=== PATIENT | female | born 1945 | race Caucasian/White ===

== ENCOUNTER 2022-06-18 02:32 | Emergency (ER) | payer MEDICARE, MEDICAID, SELFPAY ==
[2022-06-18] VITALS (10 sets, daily range): BP systolic 112–144; BP diastolic 52–79; PULSE 84–92; RESP 14–19; TEMP 36.6–36.7; O2SAT 94–99; BMI 31.4; BMI 29.5
--- NOTE | 2022-06-18 02:36 | XR_ITS ---
PROCEDURE INFORMATION: Exam: XR Chest Exam date and time: 06/18/2022 3:00 AM Age: 77 years old Clinical indication: Other: Somnolence TECHNIQUE: Imaging protocol: Radiologic exam of the chest. Views: 1 view. COMPARISON: No relevant prior studies available. FINDINGS: Lungs: Unremarkable. No consolidation. Pleural spaces: Unremarkable. No pleural effusion. No pneumothorax. Heart/Mediastinum: Unremarkable. No cardiomegaly. Bones/joints: Unremarkable. IMPRESSION: No acute cardiopulmonary process.
--- NOTE | 2022-06-18 02:36 | ECG_ITS ---
APPROVED REPORT Exam: Resting ECG HR:85 bpm ECG Measurements Heart Rate 85 AXES OH 157 P 71 QRSd 95 QRS 54 QT 368 T 74 QTc 410 Conclusion SINUS RHYTHM NORMAL ECG UNCONFIRMED REPORT Electronically signed by : John Nugent MD 06/19/2022 20:23:22
--- NOTE | 2022-06-18 02:37 | CT_ITS ---
PROCEDURE INFORMATION: Exam: CT Head Without Contrast Exam date and time: 06/18/2022 2:52 AM Age: 77 years old Clinical indication: Altered mental status/memory loss; Additional info: Somnolence TECHNIQUE: Imaging protocol: Computed tomography of the head without contrast. Radiation optimization: All CT scans at this facility use at least one of these dose optimization techniques: automated exposure control; mA and/or kV adjustment per patient size (includes targeted exams where dose is matched to clinical indication); or iterative reconstruction. REPORTING DATA: Count of CT and Cardiac NM exams in prior 12 months: This patient has received 0 known CTs and 0 known cardiac nuclear medicine studies in the 12 months prior to the current study. COMPARISON: No relevant prior studies available. FINDINGS: Brain: There is diffuse cortical volume loss and hypoattenuation of the deep white matter. No evidence of acute intracranial hemorrhage. No acute cerebral edema, mass effect or shift. Cerebral ventricles: No ventriculomegaly. Paranasal sinuses: Visualized sinuses are unremarkable. No fluid levels. Mastoid air cells: Visualized mastoid air cells are well aerated. Bones/joints: Unremarkable. No acute fracture. Soft tissues: Unremarkable. IMPRESSION: No acute intracranial process. Diffuse cortical atrophy and chronic deep white matter small vessel disease.
[2022-06-18 02:43] LABS: Coronavirus 19, PCR Not Detected (NotDetected); Influenza A, PCR Not Detected (NotDetected); Influenza B, PCR Not Detected (NotDetected); Microscopic, Urine URINE MICROSCOPIC (MICROSCOPIC)
[2022-06-18 02:45] LABS: Basophils # 0.1 K/mm3 (0-0.2); Basophils % 0.4 % (0.1-2.0); Eosinophils # 0.2 K/mm3 (0.0-0.4); Eosinophils % 1.4 % (0.1-12.0); Hematocrit 29.2 % (37.0-47.0); Hemoglobin 9.3 g/dL (12.2-16.2); Lymphocytes # 1.4 K/mm3 (0.7-4.5); Lymphocytes % 12.5 % (10-50); Mean Corpuscular HGB Conc 31.7 g/dL (31.8-35.4); Mean Corpuscular Hemoglobin 25.3 pg (27.0-31.2); Mean Corpuscular Volume 79.8 fl (81-99); Mean Platelet Volume 8.2 fl (7.4-10.4); Monocytes # 0.8 K/mm3 (0.1-1.0); Monocytes % 6.9 % (1.7-9.3); Neutrophils # 9.1 K/mm3 (1.8-7.8); Neutrophils % 78.8 % (37.0-80.0); Platelet Count 361 K/mm3 (142-424); Red Blood Count 3.66 M/mm3 (4.20-5.40); Red Cell Distribution Width 18.4 % (11.5-17.5); White Blood Count 11.5 K/mm3 (4.8-10.8)
[2022-06-18 02:46] LABS: Appearance,Urine CLEAR (Clear); Bilirubin,Urine Negative (Negative); Blood, Urine 2+ (Negative); Color,Urine YELLOW (Yellow); Glucose,Urine (UA) Negative (Negative); Ketones,Urine Negative (Negative); Leukocyte Esterase,Urine Negative (Negative); Nitrate,Urine Negative (Negative); Protein,Urine 1+ (Negative); Urobilinogen,Urine 0.2 EU/dl (0.2)
[2022-06-18 02:47] LABS: Sodium 135 mmol/L (136-145)
[2022-06-18 02:50] LABS: Alanine Aminotransferase 13 U/L (12-78); Albumin Level 3.1 g/dl (3.5-5.0); Albumin/Globulin Ratio 0.9 (1.1-1.8); Alkaline Phosphatase 70 U/L (38-126); Aspartate Amino Transferase 23 U/L (14-36); Bilirubin,Total 0.3 mg/dl (0.2-1.3); Blood Urea Nitrogen 43 mg/dl (7-17); Calcium 8.5 mg/dl (8.4-10.2); Carbon Dioxide 34 mmol/L (22.0-30.0); Creatinine Clearance Estimated 48 mL/min (50-200); Estimated Glomerular Filt Rate 40 ml/min (>60); GFR (African American) 48 ML/MIN (>60); Globulin 3.4 g/dL (1.3-3.2); Glucose 148 mg/dl (74-100); Total Protein,Serum 6.5 g/dl (6.3-8.2)
[2022-06-18 02:57] LABS: C-Reactive Protein 226.7 mg/L (0-4)
[2022-06-18 03:02] LABS: Chloride 96 mmol/L (98-107)
[2022-06-18 03:03] LABS: Bacteria,Urine 1+ /lpf
[2022-06-18 03:13] LABS: Erythrocyte Sedimentation Rate > 140 mm/hr (0-30)
[2022-06-18 03:26] LABS: Procalcitonin 0.311 ng/mL (0.0-2.0)
--- NOTE | 2022-06-18 03:39 | HMH.EDAMS ---
Discharge Plan Disposition Patient Disposition: Xfer SNF Prescriptions Prescriptions: No Action atorvastatin 40 mg Tablet 40 mg PO DAILY sennosides [senna] 8.6 mg Tablet 8.6 mg PO DAILY insulin glargine 100 unit/mL Solution 7 unit SQ HS loperamide 2 mg Tablet 2 mg PO DAILY PRN (Reason: Constipation) acetaminophen 500 mg Tablet 500 mg PO Q4-6H MDD 4000mg PRN (Reason: Pain, Mild) Lactobacillus acidophilus Tablet 1 tab PO DAILY baclofen 10 mg Tablet 10 mg PO QID aspirin 81 mg Tablet,Chewable 81 mg PO DAILY insulin lispro [Humalog U-100 Insulin] 100 unit/mL Solution See Protocol SQ ACHS Protocol: Insulin Corrective Low-Dose Regimen Condition: Fingerstick Blood Glucose Dose/Route: Insulin Units Condition: 151-200 mg/dl Dose/Route: 2 unit/SQ Condition: 201-250 mg/dl Dose/Route: 4 units/SQ Condition: 251-300 mg/dl Dose/Route: 6 units/SQ Condition: 301-350 mg/dl Dose/Route: 8 units/SQ Condition: 351-400 mg/dl Dose/Route: 10 units/SQ Condition: 401-450 mg/dl Dose/Route: 12 units/SQ Condition: > 450 mg/dl Dose/Route: CALL MD Protocol Text: Low Intensity Sliding Scale Insulin ferrous sulfate 325 mg (65 mg iron) Tablet,Delayed Release (Dr/Ec) 325 mg PO DAILY diazepam 5 mg Tablet 5 mg PO HS Multivitamin And Mineral Tablet 1 tab PO DAILY melatonin 5 mg Tablet 5 mg PO HS Zinc Oxide Diaper Cream 1-10 % Cream 1 applic TOPICAL QID Clinical Impressions Clinical Impression: Altered mental status, Status post CVA, Elevated erythrocyte sedimentation rate, Elevated C-reactive protein (CRP), CRI (chronic renal insufficiency) Instructions Patient Instructions: DI for Altered Mental Status Discharge ED Provider: Korina (ED)Jacinto Altered Mental Status HPI General Chief Complaint: Altered Mental Status Stated Complaint: AMS Time Seen by Provider: 06/18/22 03:39 Mode of Arrival: EMS Source of Information: EMS Limitations: Altered Mental Status Description of Symptoms (Recalled from ER Triage Doc. by RN): Per EMS, patient has been somnolent throughout the day. correction staff reports that she is normally alert and talkative but has been very drowsy. correction staff did give patient her night time diazepam, melatonin and muscle relaxer at 1999. Upon arrival states that the care home called him at 1700 and said that she was very sleepy so they were going to have a doctor look at her. States they called him back at 0100 and said they were sending her in for evaluation because she was still very sleepy. History of Present Illness HPI narrative: sent from [facility] with reported dec mental status - no fever - no vomiting or trauma MD complaint: altered mental status Onset (ago): hour(s) Timing confirmed by: spouse and caregiver Severity: moderate Consistency of symptoms: waxing and waning Associated symptoms: denies other symptoms Related Data Home Medications Medication Instructions Recorded Confirmed Lactobacillus acidophilus 1 tab PO DAILY gerd 06/18/22 06/18/22 acetaminophen 500 mg tablet 500 mg PO Q4-6H PRN Pain, Mild 06/18/22 06/18/22 aspirin 81 mg chewable tablet 81 mg PO DAILY heart health 06/18/22 06/18/22 atorvastatin 40 mg tablet 40 mg PO DAILY High cholesterol 06/18/22 06/18/22 baclofen 10 mg tablet 10 mg PO QID muscle spasm 06/18/22 06/18/22 diazepam 5 mg tablet 5 mg PO HS Insomnia 06/18/22 06/18/22 dimethicone 1 %-zinc oxide 10 1 applic topical QID rash 06/18/22 06/18/22 %-vit A and D-aloe vera topical cream (Zinc Oxide Diaper Cream) ferrous sulfate 325 mg (65 mg 325 mg PO DAILY Supplement 06/18/22 06/18/22 iron) tablet,delayed release insulin glargine 100 unit/mL 7 unit SQ HS Diabetes 06/18/22 06/18/22 subcutaneous solution insulin lispro 100 unit/mL See Protocol SQ ACHS Diabetes 06/18/22 06/18/22 subcutaneous solution (Humalog U-100 Insulin) shahram
== END 2022-06-18 07:05 ==
PROVIDERS: Emergency Provider Emergency Medicine; PCP Family Medicine
DX: R41.82 Altered mental status, unspecified (principal); R40.0 Somnolence
CPT/HCPCS: 51702; 70450; 71045; 80053; 81001; 84145; 85025; 85651; 86140; 87086; 87088; 87186; 93005; 99285; C9803; U0003; U0005

== ENCOUNTER 2022-06-22 06:27 | Inpatient (IN) | payer MEDICARE, MEDICAID, SELFPAY ==
[2022-06-22] VITALS (22 sets, daily range): BP systolic 73–137; BP diastolic 38–67; PULSE 80–166; RESP 18–26; TEMP 37.7–40.4; O2SAT 90–100; BMI 29.0; BMI 23.7
--- NOTE | 2022-06-22 06:37 | ECG_ITS ---
APPROVED REPORT Exam: Resting ECG HR:139 bpm ECG Measurements Heart Rate 139 AXES VT 132 P 75 QRSd 83 QRS 72 QT 329 T 43 QTc 410 Conclusion SINUS TACHYCARDIA NONSPECIFIC ST & T-WAVE ABNORMALITY ABNORMAL RHYTHM ECG UNCONFIRMED REPORT Electronically signed by : John Nugent MD 06/23/2022 09:33:51
--- NOTE | 2022-06-22 06:58 | HMH.EDFEV ---
Discharge Plan Disposition Patient Disposition: Admitted As Inpatient Prescriptions Prescriptions: No Action atorvastatin 40 mg Tablet 40 mg PO DAILY sennosides [senna] 8.6 mg Tablet 8.6 mg PO DAILY insulin glargine 100 unit/mL Solution 7 unit SQ HS loperamide 2 mg Tablet 2 mg PO DAILY PRN (Reason: Constipation) acetaminophen 500 mg Tablet 500 mg PO Q4-6H MDD 4000mg PRN (Reason: Pain, Mild) Lactobacillus acidophilus Tablet 1 tab PO DAILY baclofen 10 mg Tablet 10 mg PO QID aspirin 81 mg Tablet,Chewable 81 mg PO DAILY insulin lispro [Humalog U-100 Insulin] 100 unit/mL Solution See Protocol SQ ACHS Protocol: Insulin Corrective Low-Dose Regimen Condition: Fingerstick Blood Glucose Dose/Route: Insulin Units Condition: 151-200 mg/dl Dose/Route: 2 unit/SQ Condition: 201-250 mg/dl Dose/Route: 4 units/SQ Condition: 251-300 mg/dl Dose/Route: 6 units/SQ Condition: 301-350 mg/dl Dose/Route: 8 units/SQ Condition: 351-400 mg/dl Dose/Route: 10 units/SQ Condition: 401-450 mg/dl Dose/Route: 12 units/SQ Condition: > 450 mg/dl Dose/Route: CALL MD Protocol Text: Low Intensity Sliding Scale Insulin ferrous sulfate 325 mg (65 mg iron) Tablet,Delayed Release (Dr/Ec) 325 mg PO DAILY diazepam 5 mg Tablet 5 mg PO HS Multivitamin And Mineral Tablet 1 tab PO DAILY melatonin 5 mg Tablet 5 mg PO HS Zinc Oxide Diaper Cream 1-10 % Cream 1 applic TOPICAL QID sulfamethoxazole-trimethoprim 400-80 mg tablet 1 tab PO BID Referrals Follow up/Referrals: Jacinto Greenfield [Primary Care Provider] - See instructions Clinical Impressions Clinical Impression: Acute UTI (urinary tract infection), CRI (chronic renal insufficiency), Atrial fibrillation, Severe sepsis with acute organ dysfunction, Diabetes mellitus, Acute delirium, Elevated troponin Discharge ED Provider: Korina (JACK)Jacinto Fever HPI General Chief Complaint: Fever Stated Complaint: elevated heart rate, fever Time Seen by Provider: 06/22/22 06:30 Mode of Arrival: EMS Source of Information: Patient, EMS and Medical Record Limitations: Altered Mental Status Description of Symptoms (Recalled from ER Triage Doc. by RN): Per [facility], patient began treatment for a uti yesterday. Pt had a fever last night before bed and was given tylenol at 2030. [facility] stated that the patients fever improved over night but when she woke up this morning her axillary temperature was 101 and her heart rate was 140. [facility] staff called her pcp and pcp told them to send her for evaluation for a.fib. Pt has no history of a.fib. Patients rectal temperatur on arrival to er was 104.8. History of Present Illness HPI Narrative: pt sent from [facility] with altered mental status and fever - reported uti at [facility] and started on abx - started on - pt w/o specific c/o- has recent positive uti - e coli complaint: fever Onset (ago): hour(s) Associated symptoms: denies other symptoms Relieving factors: acetaminophen Related Data Home Medications Medication Instructions Recorded Confirmed Lactobacillus acidophilus 1 tab PO DAILY gerd 06/18/22 06/22/22 acetaminophen 500 mg tablet 500 mg PO Q4-6H PRN Pain, Mild 06/18/22 06/22/22 aspirin 81 mg chewable tablet 81 mg PO DAILY heart health 06/18/22 06/22/22 atorvastatin 40 mg tablet 40 mg PO DAILY High cholesterol 06/18/22 06/22/22 baclofen 10 mg tablet 10 mg PO QID muscle spasm 06/18/22 06/22/22 diazepam 5 mg tablet 5 mg PO HS Insomnia 06/18/22 06/22/22 dimethicone 1 %-zinc oxide 10 1 applic topical QID rash 06/18/22 06/22/22 %-vit A and D-aloe vera topical cream (Zinc Oxide Diaper Cream) ferrous sulfate 325 mg (65 mg 325 mg PO DAILY Supplement 06/18/22 06/22/22 iron) tablet,delayed release insulin glargine 100 unit/mL 7 unit SQ HS Diabetes 06/18/22 06/22/22 subcutaneous solution insulin lispro 100 unit/mL
[2022-06-22 06:59] LABS: Appearance,Urine CLOUDY (Clear); Bilirubin,Urine Negative (Negative); Blood, Urine 3+ (Negative); Color,Urine YELLOW (Yellow); Glucose,Urine (UA) Negative (Negative); Ketones,Urine TRACE (Negative); Leukocyte Esterase,Urine 2+ (Negative); Microscopic, Urine URINE MICROSCOPIC (MICROSCOPIC); Nitrate,Urine POSITIVE (Negative); PH,Urine 8.5 (5.0-8.5); Protein,Urine 2+ (Negative); Specific Gravity, Urine 1.015 (1.005-1.030); Urobilinogen,Urine 0.2 EU/dl (0.2)
--- NOTE | 2022-06-22 06:59 | XR_ITS ---
FINAL REPORT CLINICAL HISTORY: fever, poss a fib. COMPARISON: 06/18/2022 FINDINGS: A single portable view of the chest was obtained. The heart size and pulmonary vascularity are within normal limits. The mediastinum is within normal limits. No acute pulmonary abnormality is identified. The bony thorax is intact. IMPRESSION: No active cardiopulmonary disease. Reviewed, Interpreted and Dictated by Juan Daniel Bansal III, MD Transcribed by Ilas Orantes Authenticated and [facility]
[2022-06-22 07:05] LABS: Basophils % 0.2 % (0.1-2.0); Eosinophils # 0.1 K/mm3 (0.0-0.4); Eosinophils % 0.8 % (0.1-12.0); Hemoglobin 9.8 g/dL (12.2-16.2); Lymphocytes # 0.4 K/mm3 (0.7-4.5); Lymphocytes % 2.5 % (10-50); Mean Corpuscular HGB Conc 31.6 g/dL (31.8-35.4); Mean Corpuscular Hemoglobin 24.4 pg (27.0-31.2); Mean Corpuscular Volume 77.2 fl (81-99); Mean Platelet Volume 7.9 fl (7.4-10.4); Monocytes # 0.2 K/mm3 (0.1-1.0); Monocytes % 1.3 % (1.7-9.3); Neutrophils # 16.7 K/mm3 (1.8-7.8); Neutrophils % 95.2 % (37.0-80.0); Platelet Count 482 K/mm3 (142-424); Red Blood Count 4.02 M/mm3 (4.20-5.40); Red Cell Distribution Width 17.9 % (11.5-17.5); White Blood Count 17.5 K/mm3 (4.8-10.8)
[2022-06-22 07:06] LABS: Chloride 96 mmol/L (98-107); Potassium 4.1 mmoL/L (3.5-5.1); Sodium 134 mmol/L (136-145)
[2022-06-22 07:07] LABS: MANUAL DIFFERENTIAL MANUAL DIFFERENTIAL (MANUAL DIFF)
[2022-06-22 07:08] LABS: Blood Urea Nitrogen 43 mg/dl (7-17); Creatinine Clearance Estimated 39 mL/min (50-200); Estimated Glomerular Filt Rate 31 ml/min (>60); GFR (African American) 38 ML/MIN (>60)
[2022-06-22 07:09] LABS: Alanine Aminotransferase 17 U/L (12-78); Albumin Level 3.2 g/dl (3.5-5.0); Albumin/Globulin Ratio 0.9 (1.1-1.8); Alkaline Phosphatase 165 U/L (38-126); Anion Gap 15.1 mEq/L (5-15); Aspartate Amino Transferase 27 U/L (14-36); Bilirubin,Total 0.5 mg/dl (0.2-1.3); Carbon Dioxide 27 mmol/L (22.0-30.0); Globulin 3.7 g/dL (1.3-3.2); Total Protein,Serum 6.9 g/dl (6.3-8.2)
[2022-06-22 07:10] LABS: Calcium 8.4 mg/dl (8.4-10.2); Glucose 178 mg/dl (74-100)
[2022-06-22 07:10] LABS: Bacteria,Urine 2+ /lpf; RBC,Urine 20-50 #/hpf (0-3)
--- NOTE | 2022-06-22 07:10 | PC.NURSE ---
plant operator/shift supervisor staff confirmed they gave 650mg tylenol RC
[2022-06-22 07:11] LABS: Coronavirus 19, PCR Not Detected (NotDetected); Influenza A, PCR Not Detected (NotDetected); Influenza B, PCR Not Detected (NotDetected)
[2022-06-22 07:13] LABS: Acetone, Serum (Rapid) None Detected (None Detect)
[2022-06-22 07:14] LABS: C-Reactive Protein 253.1 mg/L (0-4)
[2022-06-22 07:22] LABS: Lactic Acid 2.1 mmol/L (0.7-2.1)
[2022-06-22 07:25] LABS: Lymphocytes % 4 % (10-50); Monocytes % 1 % (2-9); Neutrophils % 95 % (42-76); Total Cells Counted 100
--- NOTE | 2022-06-22 07:25 | ECG_ITS ---
APPROVED REPORT Exam: Resting ECG HR:181 bpm ECG Measurements Heart Rate 181 AXES QRSd 88 QRS 78 QT 200 T 0 QTc 295 Conclusion ATRIAL FIBRILLATION WITH RAPID VENTRICULAR RESPONSE WITH ABERRANT CONDUCTION OR VENTRICULAR PREMATURE COMPLEXES NONSPECIFIC ST & T-WAVE ABNORMALITY CRITICAL TEST RESULT UNCONFIRMED REPORT Electronically signed by : John Nugent MD 06/23/2022 09:33:47
--- NOTE | 2022-06-22 07:25 | PC.NURSE ---
2nd EKG done and given to Dr. Hui d/t elevated heart rate, rhythm change
[2022-06-22 07:26] LABS: Hypochromasia 1+; Microcytosis 1+; Platelet Estimate Slight Increase
--- NOTE | 2022-06-22 07:28 | PC.NURSE ---
while at the nurses station the pt was noted to have a heart rate of 180s and O2 sat of 88% on the monitor. this nurse and BAILEY Starks went to bedside to assess pt. pt was coughing and restless and reporting that everything hurt. pt attempted to be redirected and calmed down to lower pulse rate but unsuccessful. pt remained in the 180s bpm. new EKG obtained at this time and given to . pt is new onset Afib on EKG. Cardizem push and drip ordered at this time.
--- NOTE | 2022-06-22 07:29 | PC.NURSE ---
pt placed on oxygen at 2L NC at this time due to oxygen sat of 88% and tachycardia.
--- NOTE | 2022-06-22 07:29 | PC.NURSE ---
House notified of admission, UTI, severe sepsis, acute organ dysfunction. Hospitalist, Dr. Avila.
[2022-06-22 07:32] LABS: Procalcitonin 22.8 ng/mL (0.0-2.0); Troponin I 0.88 ng/ml (0.00-0.034)
--- NOTE | 2022-06-22 07:32 | PC.NURSE ---
care management notified pt status changed to step down.
--- NOTE | 2022-06-22 07:32 | PC.NURSE ---
Michelle Woodward RN gave Dr. Hui trop results verbally of 0.88
[2022-06-22 07:39] LABS: Erythrocyte Sedimentation Rate > 140 mm/hr (0-30)
--- NOTE | 2022-06-22 07:45 | PC.NURSE ---
calling care management to update on needing a step down room
[2022-06-22 07:59] LABS: NT Pro Brain Natriuretic Pep. 1720 pg/mL (0-450)
[2022-06-22 08:07] LABS: T4 (Thyroxine) 6.7 ug/dl (5.53-11.0)
[2022-06-22 08:21] LABS: Thyroid Stimulating Hormone 2.54 uIU/mL (0.465-4.68)
--- NOTE | 2022-06-22 08:34 | PC.NURSE ---
report called to Kathy Jaime RN
--- NOTE | 2022-06-22 08:55 | PC.NURSE ---
notified pt converted to NSR at this time. stated to not stop the Cardizem at this time and that he would be down to round on the pt soon.
--- NOTE | 2022-06-22 09:07 | PC.NURSE ---
Dr. Avila, Hospitalist at
--- NOTE | 2022-06-22 09:10 | PC.NURSE ---
Dr. Nolberto Avila at bedside for pt evaluation at this time. MD confirmed conversion to NSR and performed bedside echo at this time via US. MD gave verbal order to keep pt on cardizem and to give another 1000ml bolus of NS after the current bolus is finished. MD also notified of pt current pain due to chronic muscle spasms and notified pt family that once her BP came up after fluids they could look at giving her something for pain. pt was understanding and had no other complaints or concerns at this time
--- NOTE | 2022-06-22 09:20 | PC.NURSE ---
Pt arrived to the floor at this time
--- NOTE | 2022-06-22 10:07 | EXP.HP ---
History of Present Illness *Reason for visit:: Encephalopathy *History of present illness: 77-year-old female presenting emergency department due to acute encephalopathy. Found to have urinary tract infection, she is currently unable to provide any history due to underlying acute illness. She is continuously moaning due to back spasms. Unable to provide further history due to encephalopathy Arrived in atrial fibrillation with RVR. Bedside echo showed normal ejection fraction. Patient was started on Cardizem and had improvement of her atrial fibrillation and converted back to normal sinus rhythm. She remained tachycardic and was receiving multiple boluses of IV fluids. She continued to be hypotensive and was started on Levophed. Despite fluid and pressor resuscitation patient remained tenuous from a hemodynamic standpoint. Broad-spectrum antibiotics were initiated. Triple-lumen IJ central catheter was placed. [facility] Disclaimer: The information contained in this section may have been updated after the patient was seen, as this information can be updated by other users. Medical History (Updated 06/22/22 @ 14:18 by Jaguar Gayle MD) Acute delirium Altered mental status Atrial fibrillation CRI (chronic renal insufficiency) Diabetes mellitus Elevated troponin Hyperlipidemia Septic shock Status post CVA Surgical History (Updated 06/22/22 @ 16:14 by Kathy Jaime RN) H/O: hysterectomy Family History (Updated 06/22/22 @ 16:14 by Kathy Jaime, BAILEY) Other Family history of hyperlipidemia Family history of hypertension Social History (Updated 06/22/22 @ 16:16 by Kathy Jaime RN) Smoking Status: Never smoker alcohol intake: never current occupational status: retired Travel in the last 8 weeks: None Review of Systems Review of Systems Review of systems:: unable to obtain Meds Home Medications and Allergies Home Medications Medication Instructions Recorded Confirmed Type Lactobacillus acidophilus 1 tab PO DAILY Probiotic 06/18/22 06/22/22 History acetaminophen 500 mg tablet 500 mg PO Q6HP PRN Pain or Fever, 06/18/22 06/22/22 History Mild aspirin 81 mg chewable tablet 81 mg PO DAILY heart health 06/18/22 06/22/22 History baclofen 10 mg tablet 10 mg PO QID muscle spasm 06/18/22 06/22/22 History diazepam 5 mg tablet 5 mg PO HS Insomnia 06/18/22 06/22/22 History dimethicone 1 %-zinc oxide 10 1 applic topical QID rash 06/18/22 06/22/22 History %-vit A and D-aloe vera topical cream (Zinc Oxide Diaper Cream) ferrous sulfate 325 mg (65 mg 325 mg PO Q48H Supplement 06/18/22 06/22/22 History iron) tablet,delayed release insulin glargine 100 unit/mL 7 unit SQ HS Diabetes 06/18/22 06/22/22 History subcutaneous solution insulin lispro 100 unit/mL See Protocol SQ ACHS Diabetes 06/18/22 06/22/22 History subcutaneous solution (Humalog U-100 Insulin) loperamide 2 mg tablet 2 mg PO Q6HP PRN Loose Stools 06/18/22 06/22/22 History melatonin 5 mg tablet 15 mg PO HS Insomnia 06/18/22 06/22/22 History multivitamin,mr-wemw-Bx-FA-min 1 tab PO DAILY Supplement 06/18/22 06/22/22 History sennosides 8.6 mg tablet (senna) 8.6 mg PO Q48H constipation 06/18/22 06/22/22 History pravastatin 40 mg tablet 40 mg PO HS Cholesterol 06/22/22 06/22/22 History sulfamethoxazole 400 1 tab PO BID Urinary tract 06/22/22 06/22/22 History mg-trimethoprim 80 mg tablet infection New Prescriptions to Start Prescriptions: Allergies Allergy/AdvReac Type Severity Reaction Status Date / Time atorvastatin [From Lipitor] Allergy Unknown Unknown Verified 06/18/22 02:36 allergy reaction simvastatin [From Zocor] Allergy Unknown Unknown Verified 06/18/22 02:36 allergy reaction Exam Data for Last 24 hours Vital signs and Labs for Last 24 Hours: Temp Pulse Resp BP Pulse Ox 104.8 F H 131 H 23 97/48 L 93 L 06/22/22 06:48 06/22/22 08:21 06/22/22 08:21 06/22/22 08:21
--- NOTE | 2022-06-22 10:14 | HMH.PHAINT1 ---
Pharmacy Intervention Comments: Reconciled patient's home medications using MAR from [facility].
[2022-06-22 10:56] LABS: Reflex Lactic Add Lactic Reflex
[2022-06-22 11:27] LABS: Troponin I 1.14 ng/ml (0.00-0.034)
--- NOTE | 2022-06-22 11:34 | PC.NURSE ---
Critical lab value troponin 1.14 reported to
--- NOTE | 2022-06-22 11:34 | PC.NURSE ---
Pt continues to be hypotensive. notified. New orders received to place pt on Levophed.
[2022-06-22 11:43] LABS: Lactic Acid Follow Up (RFLX 1) 1.4 mmol/L (0.7-2.1)
--- NOTE | 2022-06-22 12:08 | EXP.PHA.CONS ---
Pharmacy Consult Date: 06/22/22 Time: 12:08 Referring provider: DR. Zeke SANTOYO Reason for Consult:: VANCOMYCIN DOSING Allergies Allergy/AdvReac Type Severity Reaction Status Date / Time atorvastatin [From Lipitor] Allergy Unknown Unknown Verified 06/18/22 02:36 allergy reaction simvastatin [From Zocor] Allergy Unknown Unknown Verified 06/18/22 02:36 allergy reaction Home Medications Medication Instructions Recorded Confirmed Type Lactobacillus acidophilus 1 tab PO DAILY Probiotic 06/18/22 06/22/22 History acetaminophen 500 mg tablet 500 mg PO Q6HP PRN Pain or Fever, 06/18/22 06/22/22 History Mild aspirin 81 mg chewable tablet 81 mg PO DAILY heart health 06/18/22 06/22/22 History baclofen 10 mg tablet 10 mg PO QID muscle spasm 06/18/22 06/22/22 History diazepam 5 mg tablet 5 mg PO HS Insomnia 06/18/22 06/22/22 History dimethicone 1 %-zinc oxide 10 1 applic topical QID rash 06/18/22 06/22/22 History %-vit A and D-aloe vera topical cream (Zinc Oxide Diaper Cream) ferrous sulfate 325 mg (65 mg 325 mg PO Q48H Supplement 06/18/22 06/22/22 History iron) tablet,delayed release insulin glargine 100 unit/mL 7 unit SQ HS Diabetes 06/18/22 06/22/22 History subcutaneous solution insulin lispro 100 unit/mL See Protocol SQ ACHS Diabetes 06/18/22 06/22/22 History subcutaneous solution (Humalog U-100 Insulin) loperamide 2 mg tablet 2 mg PO Q6HP PRN Loose Stools 06/18/22 06/22/22 History melatonin 5 mg tablet 15 mg PO HS Insomnia 06/18/22 06/22/22 History multivitamin,mq-hjla-La-FA-min 1 tab PO DAILY Supplement 06/18/22 06/22/22 History sennosides 8.6 mg tablet (senna) 8.6 mg PO Q48H constipation 06/18/22 06/22/22 History pravastatin 40 mg tablet 40 mg PO HS Cholesterol 06/22/22 06/22/22 History sulfamethoxazole 400 1 tab PO BID Urinary tract 06/22/22 06/22/22 History mg-trimethoprim 80 mg tablet infection New Prescriptions to Start Prescriptions: Height: 1.63 m Weight: 62.686 kg Laboratory Results:: Laboratory Results - last 24 hr 06/22/22 06:39: WBC 17.5 H, RBC 4.02 L, Hgb 9.8 L, Hct 31.0 L, MCV 77.2 L, MCH 24.4 L, MCHC 31.6 L, RDW 17.9 H, Plt Count 482 H, MPV 7.9, Neut % (Auto) 95.2 H, Lymph % (Auto) 2.5 L, Norman % (Auto) 1.3 L, Eos % (Auto) 0.8, Baso % (Auto) 0.2, Neut # (Auto) 16.7 H, Lymph # (Auto) 0.4 L, Norman # (Auto) 0.2, Eos # (Auto) 0.1, Baso # (Auto) 0.0, Total Counted 100, Neutrophils % (Manual) 95 H, Lymphocytes % (Manual) 4 L, Monocytes % (Manual) 1 L, Platelet Estimate Slight increase, RBC Morphology Not Reportable, Hypochromasia 1+, Microcytosis 1+, ESR > 140 H 06/22/22 06:39: Sodium 134 L, Potassium 4.1, Chloride 96 L, Carbon Dioxide 27, Anion Gap 15.1 H, BUN 43 H, Creatinine 1.60 H, Estimated Creat Clear 39, Estimated GFR 31 L, Est GFR ( Amer) 38 L, Glucose 178 H, Calcium 8.4, Total Bilirubin 0.5, AST 27, ALT 17, Alkaline Phosphatase 165 H, C-Reactive Protein 253.1 H, Total Protein 6.9, Albumin 3.2 L, Globulin 3.7 H, Albumin/Globulin Ratio 0.9 L 06/22/22 06:39: Lactate 2.1 06/22/22 06:39: Acetone Level None detected 06/22/22 06:39: Troponin I 0.88 H, Procalcitonin 22.8 H 06/22/22 06:39: NT-Pro-B Natriuret Pep 1720 H, TSH 2.54, Thyroxine (T4) 6.7 06/22/22 06:40: SARS-CoV-2 (PCR) Not detected, Influenza A Untype (PCR) Not detected, Influenza Type B (PCR) Not detected 06/22/22 06:45: Urine Color Yellow, Urine Appearance Cloudy, Urine pH 8.5, Ur Specific [place] 1.015, Urine Protein 2+, Urine Glucose (UA) Negative, Urine Ketones Trace, Urine Blood 3+, Urine Nitrate Positive, Urine Bilirubin Negative, Urine Urobilinogen 0.2, Ur Leukocyte Esterase 2+ A, Urine RBC 20-50, Urine WBC 10-20, Ur Squamous Epith Cells 3-5, Urine Bacteria 2+ 06/22/22 10:37: Troponin I 1.14 H 06/22/22 11:19: Lactate 1.4 Assessment and Plan Assessment and plan all Dx Assessment and Plan for all problems:: Pharmacokinetic dosing service Objective: Patient
--- NOTE | 2022-06-22 13:02 | EXP.CARD.CON ---
History of Present Illness History of Present Illness Consult date: 06/22/22 Requesting physician: Vani Avila Consult reason: atrial fibrillation Chief complaint: afib History of present illness: This is a 77-year-old white female with a past known history of cerebrovascular accident, hyperlipidemia and diabetes mellitus. The patient presented to the emergency department with acute encephalopathy. The patient resides at [facility] and began treatment for UTI yesterday. Through the night the patient had fevers which did improve overnight but when she woke up this morning her axillary temperature was 101 ?F. The patient was noted to have a heart rate in the 140s. The halfway called her primary care provider who then recommended that the patient be sent to the emergency department for evaluation secondary to her tachycardia. On arrival to the emergency department her rectal temperature was 104.8 ?F. The patient does have an altered mental status. She was found to have a UTI and sepsis and admitted to the hospital. The patient was also in atrial fibrillation with RVR. Her heart rate was in the 180s since being in the hospital. The patient was started on a diltiazem drip. She has converted to sinus rhythm with the diltiazem drip. She remains somewhat tachycardic in sinus with a heart rate of around 110 bpm at this time. The patient appears to be in no acute distress. However, she is moaning and her states that she does this when she is having muscle spasms. He states that she has had these episodes of moaning like this when she is in pain from muscle spasms since her stroke several years ago. The patient really does not follow any commands or answer any of my questions during the review of systems. [facility] Disclaimer: The information contained in this section may have been updated after the patient was seen, as this information can be updated by other users. Medical History (Updated 06/22/22 @ 13:42 by Brittany Childers APRN) Acute delirium Altered mental status Atrial fibrillation CRI (chronic renal insufficiency) Diabetes mellitus Elevated troponin Hyperlipidemia Status post CVA Social History (Updated 06/18/22 @ 06:49 by Jacinto Hui MD (ED)) Smoking Status: Never smoker alcohol intake: never current occupational status: retired Travel in the last 8 weeks: None Review of Systems Review of Systems Review of systems:: unable to obtain Exam Data for Last 24 hours Vital signs and Labs for Last 24 Hours: Temp Pulse Resp BP Pulse Ox 100.4 F H 122 H 21 102/53 L 94 L 06/22/22 11:26 06/22/22 09:15 06/22/22 09:15 06/22/22 09:15 06/22/22 09:00 Laboratory Results - last 24 hr 06/22/22 06:39: WBC 17.5 H, RBC 4.02 L, Hgb 9.8 L, Hct 31.0 L, MCV 77.2 L, MCH 24.4 L, MCHC 31.6 L, RDW 17.9 H, Plt Count 482 H, MPV 7.9, Neut % (Auto) 95.2 H, Lymph % (Auto) 2.5 L, [place] % (Auto) 1.3 L, Eos % (Auto) 0.8, Baso % (Auto) 0.2, Neut # (Auto) 16.7 H, Lymph # (Auto) 0.4 L, [place] # (Auto) 0.2, Eos # (Auto) 0.1, Baso # (Auto) 0.0, Total Counted 100, Neutrophils % (Manual) 95 H, Lymphocytes % (Manual) 4 L, Monocytes % (Manual) 1 L, Platelet Estimate Slight increase, RBC Morphology Not Reportable, Hypochromasia 1+, Microcytosis 1+, ESR > 140 H 06/22/22 06:39: Sodium 134 L, Potassium 4.1, Chloride 96 L, Carbon Dioxide 27, Anion Gap 15.1 H, BUN 43 H, Creatinine 1.60 H, Estimated Creat Clear 39, Estimated GFR 31 L, Est GFR ( Amer) 38 L, Glucose 178 H, Calcium 8.4, Total Bilirubin 0.5, AST 27, ALT 17, Alkaline Phosphatase 165 H, C-Reactive Protein 253.1 H, Total Protein 6.9, Albumin 3.2 L, Globulin 3.7 H, Albumin/Globulin Ratio 0.9 L 06/22/22 06:39: Lactate 2.1 06/22/22 06:39: Acetone Level None detected 06/22/22 06:39: Troponin I 0.88 H, Procalcitonin 22.8 H 06/22/22 06:39: NT-Pro-B Natriuret Pep 1720 H, TSH 2.54, Thyroxine (T4) 6.7 06/22/22 06:40: SARS-CoV-2 (PCR) Not detected, Influenza A Untyp
[2022-06-22 13:45] LABS: Troponin I 1.03 ng/ml (0.00-0.034)
--- NOTE | 2022-06-22 14:18 | EXP.PULM.CON ---
History of Present Illness History of present illness: Ms. Chaney is a 77-year-old female prior smoker greater than [id number] smoker history, last smoked in 2009, multiple bilateral strokes with residual weakness in both left and right upper and lower extremities left greater than right was presented to the hospital worsening mentation and eventually found to be in septic shock needing vasopressor support and pulmonary was called for further evaluation [facility] Disclaimer: The information contained in this section may have been updated after the patient was seen, as this information can be updated by other users. Medical History (Updated 06/22/22 @ 14:18 by Jaguar Gayle MD) Acute delirium Altered mental status Atrial fibrillation CRI (chronic renal insufficiency) Diabetes mellitus Elevated troponin Hyperlipidemia Septic shock Status post CVA Social History (Updated 06/18/22 @ 06:49 by Jacinto Hui (ED)MD) Smoking Status: Never smoker alcohol intake: never current occupational status: retired Travel in the last 8 weeks: None Review of Systems Review of Systems Review of systems (narrative): Limited, patient altered. Constitutional Constitutional: Reports body ache(s) *Cardiovascular Cardiovascular: Reports dyspnea and Reports dyspnea on exertion *Respiratory Respiratory: Reports cough, Reports dyspnea and Reports dyspnea on exertion *Gastrointestinal Gastrointestinal: Reports abdominal pain *Musculoskeletal Musculoskeletal: Reports back pain and Reports myalgias Pulmonology Exam Inpatient Vital signs and Labs for Last 24 Hours: Temp Pulse Resp BP Pulse Ox 100.4 F H 122 H 21 102/53 L 94 L 06/22/22 11:26 06/22/22 09:15 06/22/22 09:15 06/22/22 09:15 06/22/22 09:00 Laboratory Results - last 24 hr 06/22/22 06:39: WBC 17.5 H, RBC 4.02 L, Hgb 9.8 L, Hct 31.0 L, MCV 77.2 L, MCH 24.4 L, MCHC 31.6 L, RDW 17.9 H, Plt Count 482 H, MPV 7.9, Neut % (Auto) 95.2 H, Lymph % (Auto) 2.5 L, [place] % (Auto) 1.3 L, Eos % (Auto) 0.8, Baso % (Auto) 0.2, Neut # (Auto) 16.7 H, Lymph # (Auto) 0.4 L, [place] # (Auto) 0.2, Eos # (Auto) 0.1, Baso # (Auto) 0.0, Total Counted 100, Neutrophils % (Manual) 95 H, Lymphocytes % (Manual) 4 L, Monocytes % (Manual) 1 L, Platelet Estimate Slight increase, RBC Morphology Not Reportable, Hypochromasia 1+, Microcytosis 1+, ESR > 140 H 06/22/22 06:39: Sodium 134 L, Potassium 4.1, Chloride 96 L, Carbon Dioxide 27, Anion Gap 15.1 H, BUN 43 H, Creatinine 1.60 H, Estimated Creat Clear 39, Estimated GFR 31 L, Est GFR ( Amer) 38 L, Glucose 178 H, Calcium 8.4, Total Bilirubin 0.5, AST 27, ALT 17, Alkaline Phosphatase 165 H, C-Reactive Protein 253.1 H, Total Protein 6.9, Albumin 3.2 L, Globulin 3.7 H, Albumin/Globulin Ratio 0.9 L 06/22/22 06:39: Lactate 2.1 06/22/22 06:39: Acetone Level None detected 06/22/22 06:39: Troponin I 0.88 H, Procalcitonin 22.8 H 06/22/22 06:39: NT-Pro-B Natriuret Pep 1720 H, TSH 2.54, Thyroxine (T4) 6.7 06/22/22 06:40: SARS-CoV-2 (PCR) Not detected, Influenza A Untype (PCR) Not detected, Influenza Type B (PCR) Not detected 06/22/22 06:45: Urine Color Yellow, Urine Appearance Cloudy, Urine pH 8.5, Ur Specific [place] 1.015, Urine Protein 2+, Urine Glucose (UA) Negative, Urine Ketones Trace, Urine Blood 3+, Urine Nitrate Positive, Urine Bilirubin Negative, Urine Urobilinogen 0.2, Ur Leukocyte Esterase 2+ A, Urine RBC 20-50, Urine WBC 10-20, Ur Squamous Epith Cells 3-5, Urine Bacteria 2+ 06/22/22 10:37: Troponin I 1.14 H 06/22/22 11:19: Lactate 1.4 06/22/22 13:08: Troponin I 1.03 H I & O for Labs for Last 24 Hours: Intake & Output 06/19/22 06/20/22 06/21/22 04/13/23 23:59 23:59 23:59 23:59 Intake Total 141 / 141 Output Total 0 / 0 Balance 141 / 141 Weight 138 lb 3.2 oz Constitutional: Present severe distress Head: Present normocephalic and atraumatic ENT: Present normal exam, normal oropharynx and mucous membranes moist Neck: Present normal ins
[2022-06-22 14:25] LABS: POC Glucose,Bedside 205 (70-110)
--- NOTE | 2022-06-22 15:28 | XR_ITS ---
FINAL REPORT CLINICAL HISTORY: EVALUATE CENTRAL LINE PLACEMENT. COMPARISON: 06/22/2022 FINDINGS: A single portable view of the chest was obtained. There is a new right deep line with the tip at the cavoatrial junction. The heart size and pulmonary vascularity are within normal limits. The mediastinum is within normal limits. There is mild right base opacity, favor atelectasis. No pneumothorax. The bony thorax is intact. IMPRESSION: Interval placement right deep line. Mild right base opacity, favor atelectasis. Reviewed, Interpreted and Dictated by Juan Daniel Bansal III, MD Transcribed by Ilsa Orantes Authenticated and [facility]
--- NOTE | 2022-06-22 18:46 | PC.NURSE ---
LR bolus infusing at this time. Levophed gtt placed on stand by.
--- NOTE | 2022-06-22 19:33 | PC.NURSE ---
bp 90/41 (57) restarted levophed drip at 2mcg/min amio has been at 1mg/min for 6 hours, decreased addi drip to 0.5mg/min
--- NOTE | 2022-06-22 20:00 | PC.NURSE ---
bp 75/42 (53), increased levophed drip to 8mcg/min
--- NOTE | 2022-06-22 20:03 | PC.NURSE ---
bp 73/40 (51), increased levophed drip to 12mcg/min
[2022-06-22 21:07] LABS: POC Glucose,Bedside 177 (70-110)
--- NOTE | 2022-06-22 21:40 | PC.NURSE ---
2140-bp 85/48 (60), increased levophed drip to 14mcg/min
[2022-06-23] VITALS (32 sets, daily range): BP systolic 85–125; BP diastolic 46–74; PULSE 74–116; RESP 16–27; TEMP 36.4–38.3; O2SAT 94–100; BMI 24.9
--- NOTE | 2022-06-23 00:41 | PC.NURSE ---
uop 100mL total for shift, notified ANYA Guajardo, instructed to give 1L NS bolus, bolus started
--- NOTE | 2022-06-23 00:52 | PC.NURSE ---
[id number]-lab notified this RN of pt's preliminary culture results of gram negative rods, notified ANYA Guajardo APRN to add flagyl to the regimen
[2022-06-23 06:14] LABS: POC Glucose,Bedside 178 (70-110)
[2022-06-23 06:49] LABS: Chloride 105 mmol/L (98-107); Potassium 4.5 mmoL/L (3.5-5.1); Sodium 136 mmol/L (136-145)
[2022-06-23 06:52] LABS: Alanine Aminotransferase 34 U/L (12-78); Albumin Level 2.6 g/dl (3.5-5.0); Albumin/Globulin Ratio 0.8 (1.1-1.8); Alkaline Phosphatase 111 U/L (38-126); Anion Gap 15.5 mEq/L (5-15); Aspartate Amino Transferase 68 U/L (14-36); Bilirubin,Total 0.5 mg/dl (0.2-1.3); Blood Urea Nitrogen 45 mg/dl (7-17); Calcium 7.3 mg/dl (8.4-10.2); Carbon Dioxide 20 mmol/L (22.0-30.0); Creatinine Clearance Estimated 26 mL/min (50-200); Estimated Glomerular Filt Rate 26 ml/min (>60); GFR (African American) 31 ML/MIN (>60); Globulin 3.2 g/dL (1.3-3.2); Glucose 162 mg/dl (74-100); Total Protein,Serum 5.8 g/dl (6.3-8.2)
--- NOTE | 2022-06-23 09:41 | EXP.PULM.PN ---
Subjective *Date: 06/23/22 *Time: 10:38 Interval history: No acute respiratory vents overnight. Hemodynamics relatively stable, continue remain on vasopressors. Pulmonology Exam Inpatient Vital signs and Labs for Last 24 Hours: Temp Pulse Resp BP Pulse Ox 98.2 F 85 22 115/70 100 06/23/22 08:00 06/23/22 08:00 06/23/22 08:00 06/23/22 08:00 06/23/22 08:00 Laboratory Results - last 24 hr 06/22/22 10:37: Troponin I 1.14 H 06/22/22 11:19: Lactate 1.4 06/22/22 13:08: Troponin I 1.03 H 06/22/22 14:16: POC Glucose 205 H 06/22/22 21:00: POC Glucose 177 H 06/23/22 05:38: Sodium 136, Potassium 4.5, Chloride 105, Carbon Dioxide 20 L, Anion Gap 15.5 H, BUN 45 H, Creatinine 1.90 H, Estimated Creat Clear 26, Estimated GFR 26 L, Est GFR ( Amer) 31 L, Glucose 162 H, Calcium 7.3 L, Total Bilirubin 0.5, AST 68 H D, ALT 34 D, Alkaline Phosphatase 111, Total Protein 5.8 L, Albumin 2.6 L D, Globulin 3.2, Albumin/Globulin Ratio 0.8 L 06/23/22 05:58: POC Glucose 178 H I & O for Labs for Last 24 Hours: Intake & Output 06/20/22 06/21/22 06/22/22 06/23/22 23:59 23:59 23:59 23:59 Intake Total 6298.126 / 6298.126 140.868 / 140.868 Output Total 100 / 200 100 / 100 Balance 6198.126 / 6098.126 40.868 / 40.868 Weight 138 lb 3.2 oz 145 lb 14.4 oz Microbiology Reports for the Last 24 Hours: Microbiology 06/22/22 06:39 Urine,Catheterized Urine Culture - Preliminary NO GROWTH AFTER 24 HOURS 06/22/22 06:45 Urine,Catheterized Urine Culture - Preliminary NO GROWTH AFTER 24 HOURS 06/22/22 06:39 Blood Blood Culture - Preliminary 06/22/22 06:39 Blood Blood Culture - Preliminary Constitutional: Present severe distress Head: Present normocephalic and atraumatic ENT: Present normal exam, normal oropharynx and mucous membranes moist Neck: Present normal inspection and full ROM Respiratory: Present rhonchi, normal respiratory effort and able to speak in complete sentences; Absent prolonged expiratory phase, respiratory distress or wheezes Cardiac: Present S1/S2, Tachycardia and radial pulses present GI: Present soft and distention; Absent tenderness or guarding Rectal (female): Present deferred (female): Present deferred Skin: Present intact; Absent cyanosis or jaundice Neuro: Present awake; Absent alert or oriented x 3 Extremities: Present normal inspection and edema; Absent clubbing or cyanosis Psychiatric: Present cooperative and unable to assess Assessment and Plan *Assessment and plan (1) Septic shock: Status: Acute Category: Medical Code(s): A41.9 - Sepsis, unspecified organism; R65.21 - Severe sepsis with septic shock Plan Ms. Chaney is a 77-year-old female prior smoker greater than 39-pnih-ztsg smoker history, last smoked in 2009, multiple bilateral strokes with residual weakness in both left and right upper and lower extremities left greater than right was presented to the hospital worsening mentation and eventually found to be in septic shock needing vasopressor support and pulmonary was called for further evaluation Chest x-ray upon admission personally reviewed, no acute pulmonary infiltrates. No fever neutrophilic leukocytosis upon admission. Febrile. 104 in the last 24 hours, improving. Urine cultures from 06/18/2022 positive for E. coli and Klebsiella, patient was discharged home on Bactrim from the ER. Patient went to [facility] and has been progressively worsening mentation eventually brought to the hospital. Interval update: Currently receiving vancomycin and cefepime. Pending blood cultures. Oliguric BETTY continue to worsen, worsening BUN/creatinine. We will closely monitor. Follow with CBC from this morning Echocardiogram EF greater than 50% with intermediate diastolic function. RV dilated with RV function grossly normal. No ASD. No significant valvular abnormalities. Small pericardial effusion with no ev
--- NOTE | 2022-06-23 09:41 | EXP.CARD.PN ---
Subjective Subjective Date: 06/23/22 Time: 09:00 Principal diagnosis: atrial fibrillation Interval history: This is a 77-year-old white female who was admitted to the hospital with UTI, sepsis and atrial fibrillation with RVR. The patient was initially started on a diltiazem drip for the atrial fibrillation with RVR and converted to sinus rhythm but she got hypotensive on the diltiazem so she was switched over to an amiodarone drip. She does remain on the amiodarone drip this morning in sinus rhythm. She was also diagnosed with a UTI and sepsis. She is requiring pressors for blood pressure support at this time. This morning she appears to be in no distress. She is not answering any of my questions or following any of my commands this morning. She is very lethargic and just wants to fall back to sleep. Her vital signs are currently stable. Exam Data for Last 24 hours Vital signs and Labs for Last 24 Hours: Temp Pulse Resp BP Pulse Ox 98.2 F 85 22 115/70 100 06/23/22 08:00 06/23/22 08:00 06/23/22 08:00 06/23/22 08:00 06/23/22 08:00 Laboratory Results - last 24 hr 06/22/22 10:37: Troponin I 1.14 H 06/22/22 11:19: Lactate 1.4 06/22/22 13:08: Troponin I 1.03 H 06/22/22 14:16: POC Glucose 205 H 06/22/22 21:00: POC Glucose 177 H 06/23/22 05:38: Sodium 136, Potassium 4.5, Chloride 105, Carbon Dioxide 20 L, Anion Gap 15.5 H, BUN 45 H, Creatinine 1.90 H, Estimated Creat Clear 26, Estimated GFR 26 L, Est GFR ( Amer) 31 L, Glucose 162 H, Calcium 7.3 L, Total Bilirubin 0.5, AST 68 H D, ALT 34 D, Alkaline Phosphatase 111, Total Protein 5.8 L, Albumin 2.6 L D, Globulin 3.2, Albumin/Globulin Ratio 0.8 L 06/23/22 05:58: POC Glucose 178 H I & O for Last 24 hours: Intake & Output 06/20/22 06/21/22 06/22/22 06/23/22 23:59 23:59 23:59 23:59 Intake Total 6298.126 / 6298.126 140.868 / 140.868 Output Total 100 / 200 100 / 100 Balance 6198.126 / 6098.126 40.868 / 40.868 Weight 138 lb 3.2 oz 145 lb 14.4 oz Microbiology Reports for the Last 24 Hours: Microbiology 06/22/22 06:39 Urine,Catheterized Urine Culture - Preliminary NO GROWTH AFTER 24 HOURS 06/22/22 06:45 Urine,Catheterized Urine Culture - Preliminary NO GROWTH AFTER 24 HOURS 06/22/22 06:39 Blood Blood Culture - Preliminary 06/22/22 06:39 Blood Blood Culture - Preliminary Narrative: Telemetry strip shows sinus rhythm with a rate of 83 bpm. Constitutional Constitutional: no acute distress, average body habitus, chronically ill appearing and somnolent *Routine HEENT Exam Head: Present normocephalic and atraumatic ENT: Present mucous membranes moist *Routine Neck Exam Neck: Present supple, full ROM and normal carotid upstroke; Absent JVD, carotid bruit or lymphadenopathy *Routine Respiratory Exam Respiratory: Present CTA bilaterally, normal respiratory effort and symmetric chest movement *Routine Cardiovascular Exam Cardiovascular: Present RRR, Normal S1 and Normal S2; Absent murmur or gallop *Routine Abdominal Exam Abdominal: Present soft and normoactive bowel sounds; Absent distended or organomegaly *Routine Extremities Exam Extremities: Present pulses intact and normal capillary refill; Absent cyanosis, clubbing or edema *Routine Skin Exam Skin: Present intact and warm; Absent erythema *Routine Neurological Exam Neurological: Present altered mental status Routine Psychiatric Exam Psychiatric: Present unable to assess Progress Note: A&P Assessment and plan (1) Atrial fibrillation: Status: Acute (2) Altered mental status: Status: Acute (3) Severe sepsis with acute organ dysfunction: Status: Acute (4) Elevated erythrocyte sedimentation rate: Status: Acute (5) Elevated C-reactive protein (CRP): Status: Acute (6) Acute UTI (urinary tract infection): Status: Acute (7) Septic shock: Status: Acute (8) Status post CVA: St
--- NOTE | 2022-06-23 10:30 | HMH.SLDYSPHA ---
Speech & Language Evaluation Speech/Language Dysphagia Evaluation Start: 06/23/22 10:07 Freq: ONCE Status: Active Protocol: Document 06/23/22 10:07 HUSSAIN (Rec: 06/23/22 10:29 HUSSAIN [id number]) Dysphagia Assess/Goals/Plan Assessment Date of Evaluation: 06/23/22 Evaluation Type Initial Certification Assessment/Problems CSE completed per MD order for concerns of possible aspiration. Does Patient Qualify for Service Yes Qualify/Failure Comment Based on CSE results and clinical observation, pt is recommended to be placed on a nectar thick/mechanical soft diet. MANAGER PORTABLE will f/u w/ pt for diet tolerance. Recommendations PHYSICIAN CERTIFICATION: The specified therapy services are required, authorized, and reviewed every 30 days. Pt will be seen # times/week 1 for # weeks 1 Diet Recommendations Mechanical Soft Liquid Type Recommendations [place] Consistency SL Swallow Guidelines Assist w/all meals,Alt bite w/ sip thru meal,High aspiration risk,Chk mough for pocketing, Eat at slow rate Dysphagia Swallow Precautions/Strategies Sitting Upright (90 deg),Small Bites and Sips,Alternate Liquids/Solids Place Food on Either side of Mouth Plan Anticipate reaching STG in # weeks 1 Anticipate reaching LTG in # weeks 4 Pt/Guardian verbally ack understanding Yes of dx/prognosis/goals G -code Required No Chcf Goals Diet mechanical soft ground with Liquids [place] Thick Education Instructions provided Discussed CSE results, aspiration precautions, and diet recommendations with pt, nursing, and care management all of which expressed understanding. Pt/Caregiver able to recall information Able to recall/restate Reinforcement needed No Speech & Language HPI History Present Illness Description of Patient Problem MANAGER PORTABLE pulled following information from ER report, 77-year-old female presenting emergency department due to acute encephalopathy. Found to have urinary tract infection, she is currently unable to provide any history
--- NOTE | 2022-06-23 11:09 | PC.NURSE ---
Addendum entered by Charissa Del Toro RN 06/23/22 11:10: During rounds for MD Dr Avila was notified face to face that pt has had decreased urine output overnight. Dr Avila checked bp with pt sitting then in trendelenburg position. r/t findings md ordered for pt to have 1 lr bolus. During assessment it was found that pt has a mass/lesion on roof of mouth that is tender with oral care. ENT consult entered, aware ENT not in house until sunday. notified md that pt aspiration in ER, Speech therapy consult entered notified that pt has long acting insulin ordered, but no sliding scale ordered. Sliding scale ordered with pharmacy per md notified md that during assesment it was noted that Dorsalis pedis pulse on left foot is not palpable or dopplerable. Posterior tibial pulse is palpable. new orders are to attempt to wean levo Original Note: [id number]
--- NOTE | 2022-06-23 11:57 | PC.NURSE ---
courtesy tech note; rounded on pt, pt denied the need to void, need for a drink, and need to reposition at this time. call light within reach, no further requests at this time. Zeke Sharp, WIL
[2022-06-23 12:36] LABS: POC Glucose,Bedside 188 (70-110)
--- NOTE | 2022-06-23 14:09 | EXP.ACUTE.PN ---
Subjective *Date: 06/23/22 *Time: 14:09 Interval history: No history obtain. Remains confused Medical Exam Vital signs and Labs for Last 24 Hours: Vital Signs Temp Pulse Pulse Resp BP BP Pulse Ox 06/23/22 12:00 74 06/23/22 11:33 97.6 F 06/23/22 10:30 75 18 85/55 L 97 06/23/22 08:00 85 100 06/23/22 10:00 77 18 99/59 L 100 06/23/22 09:30 85 18 95/60 L 100 06/23/22 09:00 84 20 97/59 L 100 06/23/22 08:00 85 22 115/70 100 06/23/22 08:00 100 06/23/22 08:00 98.2 F 06/23/22 06:00 84 20 92/56 L 100 06/23/22 04:00 92 H 06/23/22 04:00 100.9 F H 95 H 23 89/54 L 100 06/23/22 00:00 116 H 06/22/22 18:30 98 06/23/22 02:00 101 H 23 98/55 L 94 L 06/23/22 00:00 99.3 F 115 H 27 H 99/66 L 98 06/22/22 20:00 102 H 06/22/22 21:00 102.4 F H 06/22/22 22:00 115 H 24 105/45 L 100 06/22/22 20:10 109 H 21 82/44 L 100 06/22/22 20:00 102 H 21 73/40 L 100 06/22/22 18:00 123 H 20 133/64 99 06/22/22 16:00 80 06/22/22 16:00 93 H 18 137/67 98 Intake and Output 06/22/22 06/23/22 06/23/22 23:59 07:59 15:59 Intake Total 6157.126 / 6298.126 140.868 / 3415.274 2373 / 1260.868 Output Total 100 / 200 100 / 100 Balance 6057.126 / 6098.126 40.868 / 5150.335 5051 / 1160.868 Intake: Intake, Oral Amount 120 / 120 Intake, Total IV Amount 6157.126 / 6178.126 140.868 / 0496.808 9737 / 1140.868 0.9 % Sodium Chloride 1000ML 1, 5000 / 5000 1000 / 1000 000 ml @ 999 mls/hr IV .Q1H1M ONE Rx#:[id number] Amiodarone HCl 150 mg In 618 / 618 Dextrose 5 % in Water 100 ml @ 618 mls/hr IV ONCE ONE Rx#: [id number] Amiodarone HCl 900 mg In 66 / 66 Dextrose 5 % in Water 500 ml @ 33.3 mls/hr IV .[id number] [facility] Rx# :[id number] Cefepime HCl 2 gm In 0.9 % 100 / 100 Sodium Chloride 100 ml @ 200 mls/hr IV Q12H [facility] Rx#:[id number] Norepinephrine Bitartrate 8 mg 162 / 162 In Dextrose 5 % in Water 250 ml @ 20 MCG/MIN 38.7 mls/hr IV . Q6H40M [facility] Rx#:[id number] Phenylephrine HCl 10 mg In 0.9 60 / 60 % Sodium Chloride 250 ml @ 40 MCG/MIN 60.24 mls/hr IV .Q4H10M [facility] Rx#:[id number] dilTIAZem HCL 100 mg In 0.9 % 10 / 31 Sodium Chloride 100 ml @ 5 mls/ hr IV .Q20H [facility] Rx#:[id number] Output: Output, Urine Amount 0 / 0 Output, Urine Amount (Catheter) 100 / 200 100 / 100 Earzo 100 / 200 100 / 100 Other: Number of Unmeasured Voids 0 0 Weight 66.179 kg Patient Weight 06/23/22 23:59 Weight 66.179 kg Laboratory Results - last 24 hr 06/22/22 14:16: POC Glucose 205 H 06/22/22 21:00: POC Glucose 177 H 06/23/22 05:38: Sodium 136, Potassium 4.5, Chloride 105, Carbon Dioxide 20 L, Anion Gap 15.5 H, BUN 45 H, Creatinine 1.90 H, Estimated Creat Clear 26, Estimated GFR 26 L, Est GFR ( Amer) 31 L, Glucose 162 H, Calcium 7.3 L, Total Bilirubin 0.5, AST 68 H D, ALT 34 D, Alkaline Phosphatase 111, Total Protein 5.8 L, Albumin 2.6 L D, Globulin 3.2, Albumin/Globulin Ratio 0.8 L 06/23/22 05:58: POC Glucose 178 H 06/23/22 12:18: POC Glucose 188 H I & O for Labs for Last 24 Hours: Intake & Output 06/20/22 06/21/22 06/22/22 06/23/22 23:59 23:59 23:59 23:59 Intake Total 6298.126 / 6298.126 1260.868 / 1260.868 Output Total 100 / 200 100 / 100 Balance 6198.126 / 6098.126 1160.868 / 1160.868 Weight 62.686 kg 66.179 kg Microbiology Reports for the Last 24 Hours: Microbiology 06/22/22 06:39 Blood Blood Culture - Preliminary Gram Negative Rods 06/22/22 06:39 Blood Blood Culture - Preliminary Gram Negative Rods 06/22/22 06:39 Urine,Catheterized Urine Culture - Preliminary 06/22/22 06:45 Urine,Catheterized Urine Culture - Preliminary
--- NOTE | 2022-06-23 14:30 | PC.NURSE ---
Amiodarone drip off at this time per directions on PO dose. 0534
--- NOTE | 2022-06-23 15:28 | PC.NURSE ---
Notified Dr Avila at this time that the pt is c/o pain/muscle spasms in her legs. pt is currently on [facility] [facility] [place] [facility] [place] states that she does not take any other meds for pain. pt did receive a 1 time dose of morphine overnight. pt slept with medication. new orders: Dr Avila will reorder pt baclofen and diazepam.
--- NOTE | 2022-06-23 16:08 | PC.NURSE ---
courtesy tech note; [id number] rounded on pt, pt denied the need to void, need for a drink, and need to reposition in bed. call light within reach. no further requests at this time. WIL Morales
[2022-06-23 17:20] LABS: POC Glucose,Bedside 163 (70-110)
[2022-06-23 19:44] LABS: POC Glucose,Bedside 141 (70-110)
[2022-06-24] VITALS (24 sets, daily range): BP systolic 87–112; BP diastolic 47–69; PULSE 89–120; RESP 15–26; TEMP 35.9–36.6; O2SAT 97–100; BMI 25.2
--- NOTE | 2022-06-24 01:43 | PC.NURSE ---
2030-bp 122/76 (91), decreased levophed drip to 12mcg/min 2100-bp 122/54 (76), decreased levophed drip to 10mcg/min 2130-bp 115/63 (80), decreased levophed dirp to 8mcg/min 2200-bp 121/59 (79), decreased levophed drip to 6mcg/min 2230-bp 131/80 (97), decreased levophed drip to 4mcg/min 2330-bp 114/75 (88), decreased levophed drip to 2mcg/min 0030-bp 111/79 (89), held drip at this time
--- NOTE | 2022-06-24 03:46 | PC.NURSE ---
0330-bp 84/47 (59), restarted levophed drip at 2mcg/min 0339-bp 77/48 (57), increased levophed drip to 4mcg/min 0341-bp 84/47 (59), increased levophed drip to 6mcg/min
[2022-06-24 06:28] LABS: POC Glucose,Bedside 114 (70-110)
[2022-06-24 08:31] LABS: Chloride 106 mmol/L (98-107); Sodium 135 mmol/L (136-145)
[2022-06-24 08:34] LABS: Alanine Aminotransferase 106 U/L (12-78); Albumin Level 2.2 g/dl (3.5-5.0); Albumin/Globulin Ratio 0.7 (1.1-1.8); Alkaline Phosphatase 122 U/L (38-126); Aspartate Amino Transferase 132 U/L (14-36); Bilirubin,Total 0.4 mg/dl (0.2-1.3); Blood Urea Nitrogen 53 mg/dl (7-17); Carbon Dioxide 18 mmol/L (22.0-30.0); Creatinine Clearance Estimated 23 mL/min (50-200); Estimated Glomerular Filt Rate 22 ml/min (>60); GFR (African American) 26 ML/MIN (>60); Globulin 3.2 g/dL (1.3-3.2); Total Protein,Serum 5.4 g/dl (6.3-8.2)
[2022-06-24 08:35] LABS: Glucose 106 mg/dl (74-100)
--- NOTE | 2022-06-24 08:47 | PC.NURSE ---
Addendum entered by Manish Gaviria RN 06/24/22 09:48: 0830- BP 100/66 DECREASED LEVO GTT 2MCG/MIN Original Note: 0800-bp 111/66 (81) decreased levo gtt to 5mcg/min.
--- NOTE | 2022-06-24 09:55 | PC.NURSE ---
0945- BP 100/66 (77) LEVO GTT TURNED OFF AT THIS TIME.
--- NOTE | 2022-06-24 10:17 | EXP.ACUTE.PN ---
Subjective *Date: 06/24/22 *Time: 18:12 Interval history: No issues overnight. Pain this morning. Medical Exam Vital signs and Labs for Last 24 Hours: Vital Signs Temp Pulse Pulse Resp BP Pulse Ox 06/24/22 07:53 95 H 100 06/24/22 07:47 97.0 F L 06/24/22 06:00 97.7 F 06/24/22 06:00 105 H 06/24/22 06:00 104 H 17 102/47 L 100 06/24/22 05:00 103/60 L 06/24/22 04:15 95/61 L 06/24/22 04:00 105 H 22 87/58 L 100 06/24/22 04:00 97.7 F 06/24/22 02:00 120 H 26 H 102/69 L 100 06/24/22 00:00 100 06/23/22 20:00 100 06/23/22 22:20 101 H 06/23/22 20:00 102 H 06/24/22 00:00 112 H 06/24/22 00:00 111 H 20 106/63 L 100 06/24/22 00:00 100 06/23/22 22:00 102 H 24 121/59 L 100 06/24/22 00:00 97.9 F 06/23/22 22:00 98.4 F 06/23/22 20:00 97.8 F 107 H 22 120/64 100 06/23/22 18:30 108 H 20 116/74 100 06/23/22 18:00 79 18 112/46 L 100 06/23/22 17:30 80 18 112/67 100 06/23/22 17:00 77 18 118/47 L 99 06/23/22 16:30 76 18 112/61 100 06/23/22 16:00 77 16 106/64 L 100 06/23/22 15:30 76 20 110/55 L 100 06/23/22 15:00 76 16 125/66 100 06/23/22 14:30 81 18 107/50 L 100 06/23/22 17:44 80 100 06/23/22 16:00 80 06/23/22 16:48 100 06/23/22 15:32 97.6 F 06/23/22 14:00 81 20 107/50 L 100 06/23/22 14:00 86 18 118/67 97 06/23/22 13:30 88 20 111/61 97 06/23/22 13:00 74 20 95/54 L 94 L 06/23/22 12:30 80 20 104/48 L 96 06/23/22 12:00 74 20 86/50 L 94 L 06/23/22 11:30 76 20 100/53 L 94 L 06/23/22 11:00 83 20 96/61 L 95 06/23/22 12:00 74 06/23/22 11:33 97.6 F 06/23/22 10:30 75 18 85/55 L 97 Intake and Output 06/23/22 06/24/22 06/24/22 23:59 07:59 15:59 Intake Total 648 / 1908.868 450 / 450 Output Total 0 / 200 400 / 400 0 / 400 Balance 648 / 1708.868 50 / 50 0 / 50 Intake: Intake, Oral Amount 240 / 360 0 / 0 Intake, Total IV Amount 408 / 1548.868 450 / 450 Cefepime HCl 2 gm In 0.9 % 50 / 50 100 / 100 Sodium Chloride 100 ml @ 200 mls/hr IV Q12H [facility] Rx#:[id number] Metronidaz/Sod Chl 500 mg In 100 / 100 100 / 100 100 ml @ 100 mls/hr IV Q6H [facility] Rx#:[id number] Vancomycin HCl 1,000 mg In 0.9 250 / 250 % Sodium Chloride 250 ml @ 125 mls/hr IV Q36H [facility] Rx#:[id number] Output: Output, Urine Amount 0 / 100 200 / 200 0 / 200 Output, Urine Amount (Catheter) 200 / 200 Erazo 200 / 200 Other: Number of Unmeasured Voids 0 0 0 Weight 67.2 kg Patient Weight 06/24/22 23:59 Weight 67.2 kg Laboratory Results - last 24 hr 06/23/22 12:18: POC Glucose 188 H 06/23/22 17:07: POC Glucose 163 H 06/23/22 19:34: POC Glucose 141 H 06/24/22 06:15: POC Glucose 114 H 06/24/22 07:40: Sodium 135 L, Potassium 4.0, Chloride 106, Carbon Dioxide 18 L, Anion Gap 15.0, BUN 53 H, Creatinine 2.20 H, Estimated Creat Clear 23, Estimated GFR 22 L, Est GFR ( Amer) 26 L, Glucose 106 H, Calcium 7.0 L, Total Bilirubin 0.4, AST 132 H D, ALT 106 H D, Alkaline Phosphatase 122, Total Protein 5.4 L, Albumin 2.2 L D, Globulin 3.2, Albumin/Globulin Ratio 0.7 L I & O for Labs for Last 24 Hours: Intake & Output 06/21/22 06/22/22 06/23/22 06/24/22 23:59 23:59 23:59 23:59 Intake Total 6298.126 / 6298.126 1908.868 / 1908.868 450 / 450 Output Total 100 / 200 200 / 200 400 / 400 Balance 6198.126 / 6098.126 1708.868 / 1708.868 50 / 50 Weight 62.686 kg 66.179 kg 67.2 kg Microbiology Reports for the Last 24 Hours: Microbiology 06/22/22 06:39 Urine,Catheterized Urine Culture - Preliminary Gram Negative Rods Gram Negative Rods#2 06/22/22 06:45 Urine,Catheterized Urine Culture - Final NO GROWTH AFTER 48 HOURS
[2022-06-24 11:00] LABS: Basophils % 0.1 % (0.1-2.0); Eosinophils # 0.1 K/mm3 (0.0-0.4); Eosinophils % 0.2 % (0.1-12.0); Hematocrit 27.2 % (37.0-47.0); Hemoglobin 8.5 g/dL (12.2-16.2); Lymphocytes # 1.2 K/mm3 (0.7-4.5); Lymphocytes % 3.1 % (10-50); Mean Corpuscular HGB Conc 31.1 g/dL (31.8-35.4); Mean Corpuscular Hemoglobin 24.9 pg (27.0-31.2); Monocytes # 0.7 K/mm3 (0.1-1.0); Monocytes % 1.9 % (1.7-9.3); Neutrophils # 35.9 K/mm3 (1.8-7.8); Neutrophils % 94.6 % (37.0-80.0); Platelet Count 280 K/mm3 (142-424); Red Blood Count 3.39 M/mm3 (4.20-5.40); Red Cell Distribution Width 18.2 % (11.5-17.5); White Blood Count 37.9 K/mm3 (4.8-10.8)
[2022-06-24 11:09] LABS: MANUAL DIFFERENTIAL MANUAL DIFFERENTIAL (MANUAL DIFF)
[2022-06-24 11:24] LABS: Lymphocytes % 4 % (10-50); Monocytes % 2 % (2-9); Neutrophils % 94 % (42-76); Total Cells Counted 100
[2022-06-24 11:25] LABS: Anisocytosis 1+; Hypochromasia 1+; Microcytosis 1+; Platelet Estimate Normal
[2022-06-24 12:10] LABS: POC Glucose,Bedside 106 (70-110)
--- NOTE | 2022-06-24 12:37 | PC.NURSE ---
1230- BP 82/56 RESTARTED LEVO GTT AT 2 MCG/MIN.
--- NOTE | 2022-06-24 14:02 | PC.NURSE ---
1142- TEMP 96.6 WARM BLANKETS APPLIED
--- NOTE | 2022-06-24 16:44 | PC.NURSE ---
1515-BP 89/51 LEVO GTT RESTARTED AT 3MCG/MIN. 1530- BP 83/49 LEVO GTT INCREASED TO 5MCG/MIN.
[2022-06-24 17:07] LABS: POC Glucose,Bedside 123 (70-110)
[2022-06-24 21:14] LABS: POC Glucose,Bedside 148 (70-110)
--- NOTE | 2022-06-24 22:12 | PC.WOUNDNOTE ---
1949-levo gtt titrated to 4 mcg 2101-levo titrated to 3 mcg 2131- levo titrated to 4 mcg
[2022-06-25] VITALS (20 sets, daily range): BP systolic 90–138; BP diastolic 45–70; PULSE 67–120; RESP 13–20; TEMP 36.1–37.8; O2SAT 91–100; BMI 27.3
--- NOTE | 2022-06-25 04:05 | PC.NURSE ---
Levo gtt titrated to 3mcg
[2022-06-25 04:45] LABS: POC Glucose,Bedside 95 (70-110)
--- NOTE | 2022-06-25 04:48 | PC.NURSE ---
Levo gtt titrated to 2mcg
--- NOTE | 2022-06-25 06:53 | PC.NURSE ---
Pt continues on levo gtt at 2mcg/min to keep MAP >65. Pt has been repositioned q2h and when requested. Pt was given tylenol and tramadol for generalized pain. Pt has reid in place draining yellow urine with sediment. Central line to R IJ is CDI. Bed alarm on for pt safety. Call light within reach.
--- NOTE | 2022-06-25 07:59 | PC.NURSE ---
0734- levo gtt increased 5mcg/min 0758- levo gtt increased to 7mcg/min
[2022-06-25 08:18] LABS: Chloride 105 mmol/L (98-107); Potassium 3.7 mmoL/L (3.5-5.1); Sodium 132 mmol/L (136-145)
[2022-06-25 08:20] LABS: Blood Urea Nitrogen 56 mg/dl (7-17); Creatinine Clearance Estimated 26 mL/min (50-200); Estimated Glomerular Filt Rate 23 ml/min (>60); GFR (African American) 28 ML/MIN (>60)
[2022-06-25 08:21] LABS: Alanine Aminotransferase 156 U/L (12-78); Albumin Level 2.1 g/dl (3.5-5.0); Albumin/Globulin Ratio 0.8 (1.1-1.8); Alkaline Phosphatase 590 U/L (38-126); Anion Gap 12.7 mEq/L (5-15); Aspartate Amino Transferase 172 U/L (14-36); Bilirubin,Total 0.8 mg/dl (0.2-1.3); Carbon Dioxide 18 mmol/L (22.0-30.0); Globulin 2.8 g/dL (1.3-3.2); Glucose 74 mg/dl (74-100); Total Protein,Serum 4.9 g/dl (6.3-8.2)
--- NOTE | 2022-06-25 08:50 | EXP.ACUTE.PN ---
Subjective *Date: 06/25/22 *Time: 10:04 Interval history: Overall patient was doing well. No concerns or complaints at this time. Medical Exam Vital signs and Labs for Last 24 Hours: Vital Signs Temp Pulse Pulse Resp BP Pulse Ox 06/25/22 08:00 90 06/25/22 08:14 98.9 F 06/25/22 07:46 100.0 F H 06/25/22 04:00 101 H 99 06/25/22 06:00 107 H 15 108/45 L 100 06/25/22 04:00 120 H 06/25/22 04:45 138/61 06/25/22 04:00 94 H 19 129/70 98 06/24/22 20:00 100 H 06/25/22 02:00 68 17 112/57 L 99 06/25/22 00:00 99 06/25/22 00:00 85 20 103/51 L 100 06/24/22 21:00 104/68 L 06/24/22 20:45 112/53 L 06/24/22 19:45 107/51 L 06/24/22 22:00 89 15 95/55 L 100 06/24/22 21:25 100 H 06/24/22 20:00 98 H 99 06/24/22 20:00 94 H 19 105/56 L 99 06/24/22 19:15 94 H 15 103/60 L 99 06/24/22 16:00 106 H 06/24/22 16:00 94 H 19 92/62 L 100 06/24/22 14:00 112 H 17 93/54 L 100 06/24/22 15:50 97.0 F L 06/24/22 15:18 98 06/24/22 12:00 110 H 06/24/22 12:00 112 H 17 90/52 L 97 06/24/22 10:00 98 H 19 98/60 L 97 06/24/22 11:42 96.6 F L 06/24/22 11:33 96.9 F L Intake and Output 06/24/22 06/25/22 06/25/22 23:59 07:59 15:59 Intake Total 240 / 1883 1293 / 1293 Output Total 0 / 550 600 / 600 Balance 240 / 1333 693 / 693 Intake: Intake, Oral Amount 240 / 360 120 / 120 Intake, Total IV Amount 1173 / 1173 Cefepime HCl 2 gm In 0.9 % 100 / 100 Sodium Chloride 100 ml @ 200 mls/hr IV Q12H [facility] Rx#:[id number] Lactated Ringers 1000ML 1,000 973 / 973 ml @ 250 mls/hr IV .Q4H [facility] Rx# :[id number] Metronidaz/Sod Chl 500 mg In 100 / 100 100 ml @ 100 mls/hr IV Q6H [facility] Rx#:[id number] Output: Output, Urine Amount 0 / 350 600 / 600 Other: Number of Unmeasured Voids 0 0 Weight 72.575 kg Patient Weight 06/25/22 23:59 Weight 72.575 kg Laboratory Results - last 24 hr 06/24/22 07:40: WBC 37.9 H* D, RBC 3.39 L, Hgb 8.5 L, Hct 27.2 L, MCV 80.0 L, MCH 24.9 L, MCHC 31.1 L, RDW 18.2 H, Plt Count 280 D, MPV 10.0, Neut % (Auto) 94.6 H, Lymph % (Auto) 3.1 L, [place] % (Auto) 1.9, Eos % (Auto) 0.2, Baso % (Auto) 0.1, Neut # (Auto) 35.9 H, Lymph # (Auto) 1.2, [place] # (Auto) 0.7, Eos # (Auto) 0.1, Baso # (Auto) 0.0, Total Counted 100, Neutrophils % (Manual) 94 H, Lymphocytes % (Manual) 4 L, Monocytes % (Manual) 2, Platelet Estimate Normal, RBC Morphology Not Reportable, Hypochromasia 1+, Anisocytosis 1+, Microcytosis 1+ 06/24/22 11:57: POC Glucose 106 06/24/22 16:34: POC Glucose 123 H 06/24/22 20:43: POC Glucose 148 H 06/25/22 04:37: POC Glucose 95 06/25/22 07:37: Sodium 132 L, Potassium 3.7, Chloride 105, Carbon Dioxide 18 L, Anion Gap 12.7, BUN 56 H, Creatinine 2.10 H, Estimated Creat Clear 26, Estimated GFR 23 L, Est GFR ( Amer) 28 L, Glucose 74 D, Calcium 7.0 L, Total Bilirubin 0.8, AST 172 H D, ALT 156 H D, Alkaline Phosphatase 590 H, Total Protein 4.9 L, Albumin 2.1 L, Globulin 2.8, Albumin/Globulin Ratio 0.8 L I & O for Labs for Last 24 Hours: Intake & Output 06/22/22 06/23/22 06/24/22 06/25/22 23:59 23:59 23:59 23:59 Intake Total 6298.126 / 6298.126 1908.868 / 1908.868 810 / 1883 1293 / 1293 Output Total 100 / 200 200 / 200 550 / 550 600 / 600 Balance 6198.126 / 6098.126 1708.868 / 1708.868 260 / 1333 693 / 693 Weight 62.686 kg 66.179 kg 67.2 kg 72.575 kg Microbiology Reports for the Last 24 Hours: Microbiology 06/22/22 06:39 Blood Blood Culture - Final Proteus mirabilis 06/22/22 06:39 Blood Blood Culture - Preliminary Proteus mirabilis 06/22/22 06:39 Urine,Catheterized Urine Culture - Preliminary Proteus mirabilis Gram Negative Rods 06/23/22 00:22 Blood
[2022-06-25 09:14] LABS: Basophils # 0.1 K/mm3 (0-0.2); Basophils % 0.2 % (0.1-2.0); Eosinophils % 0.1 % (0.1-12.0); Hematocrit 27.9 % (37.0-47.0); Hemoglobin 8.6 g/dL (12.2-16.2); Lymphocytes # 0.2 K/mm3 (0.7-4.5); Lymphocytes % 1.1 % (10-50); Mean Corpuscular HGB Conc 30.9 g/dL (31.8-35.4); Mean Corpuscular Hemoglobin 24.6 pg (27.0-31.2); Mean Corpuscular Volume 79.5 fl (81-99); Mean Platelet Volume 9.1 fl (7.4-10.4); Monocytes # 0.3 K/mm3 (0.1-1.0); Monocytes % 1.5 % (1.7-9.3); Neutrophils % 97.1 % (37.0-80.0); Platelet Count 228 K/mm3 (142-424); Red Blood Count 3.52 M/mm3 (4.20-5.40); Red Cell Distribution Width 18.4 % (11.5-17.5); White Blood Count 20.6 K/mm3 (4.8-10.8)
[2022-06-25 09:17] LABS: MANUAL DIFFERENTIAL MANUAL DIFFERENTIAL (MANUAL DIFF)
[2022-06-25 09:28] LABS: Anisocytosis 1+; Hypochromasia 1+; Lymphocytes % 2 % (10-50); Microcytosis 1+; Monocytes % 1 % (2-9); Neutrophils % 97 % (42-76); Platelet Estimate Normal; Total Cells Counted 100
--- NOTE | 2022-06-25 10:12 | EXP.DC.SUM ---
General Admission date:: 06/22/22 HPI HPI HPI: 77-year-old female presenting emergency department due to acute encephalopathy. Found to have urinary tract infection, she is currently unable to provide any history due to underlying acute illness. She is continuously moaning due to back spasms. Unable to provide further history due to encephalopathy Arrived in atrial fibrillation with RVR. Bedside echo showed normal ejection fraction. Patient was started on Cardizem and had improvement of her atrial fibrillation and converted back to normal sinus rhythm. She remained tachycardic and was receiving multiple boluses of IV fluids. She continued to be hypotensive and was started on Levophed. Despite fluid and pressor resuscitation patient remained tenuous from a hemodynamic standpoint. Broad-spectrum antibiotics were initiated. Triple-lumen IJ central catheter was placed. Exam Data for Last 24 hours Vital signs and Labs for Last 24 Hours: Temp Pulse Resp BP Pulse Ox 98.9 F 90 15 108/45 L 98 06/25/22 08:14 06/25/22 08:00 06/25/22 06:00 06/25/22 06:00 06/25/22 08:00 Laboratory Results - last 24 hr 06/24/22 07:40: WBC 37.9 H* D, RBC 3.39 L, Hgb 8.5 L, Hct 27.2 L, MCV 80.0 L, MCH 24.9 L, MCHC 31.1 L, RDW 18.2 H, Plt Count 280 D, MPV 10.0, Neut % (Auto) 94.6 H, Lymph % (Auto) 3.1 L, [place] % (Auto) 1.9, Eos % (Auto) 0.2, Baso % (Auto) 0.1, Neut # (Auto) 35.9 H, Lymph # (Auto) 1.2, [place] # (Auto) 0.7, Eos # (Auto) 0.1, Baso # (Auto) 0.0, Total Counted 100, Neutrophils % (Manual) 94 H, Lymphocytes % (Manual) 4 L, Monocytes % (Manual) 2, Platelet Estimate Normal, RBC Morphology Not Reportable, Hypochromasia 1+, Anisocytosis 1+, Microcytosis 1+ 06/24/22 11:57: POC Glucose 106 06/24/22 16:34: POC Glucose 123 H 06/24/22 20:43: POC Glucose 148 H 06/25/22 04:37: POC Glucose 95 06/25/22 07:37: Sodium 132 L, Potassium 3.7, Chloride 105, Carbon Dioxide 18 L, Anion Gap 12.7, BUN 56 H, Creatinine 2.10 H, Estimated Creat Clear 26, Estimated GFR 23 L, Est GFR ( Amer) 28 L, Glucose 74 D, Calcium 7.0 L, Total Bilirubin 0.8, AST 172 H D, ALT 156 H D, Alkaline Phosphatase 590 H, Total Protein 4.9 L, Albumin 2.1 L, Globulin 2.8, Albumin/Globulin Ratio 0.8 L 06/25/22 07:37: WBC 20.6 H* D, RBC 3.52 L, Hgb 8.6 L, Hct 27.9 L, MCV 79.5 L, MCH 24.6 L, MCHC 30.9 L, RDW 18.4 H, Plt Count 228, MPV 9.1, Neut % (Auto) 97.1 H, Lymph % (Auto) 1.1 L, [place] % (Auto) 1.5 L, Eos % (Auto) 0.1, Baso % (Auto) 0.2, Neut # (Auto) 20.0 H, Lymph # (Auto) 0.2 L, [place] # (Auto) 0.3, Eos # (Auto) 0.0, Baso # (Auto) 0.1, Total Counted 100, Neutrophils % (Manual) 97 H, Lymphocytes % (Manual) 2 L, Monocytes % (Manual) 1 L, Platelet Estimate Normal, Hypochromasia 1+, Anisocytosis 1+, Microcytosis 1+ I & O for Last 24 hours: Intake & Output 06/22/22 06/23/22 06/24/22 06/25/22 23:59 23:59 23:59 23:59 Intake Total 6298.126 / 6298.126 1908.868 / 1908.868 810 / 1883 1423.841 / 1423.841 Output Total 100 / 200 200 / 200 550 / 550 600 / 600 Balance 6198.126 / 6098.126 1708.868 / 1708.868 260 / 1333 823.841 / 823.841 Weight 62.686 kg 66.179 kg 67.2 kg 72.575 kg Microbiology Reports for the Last 24 Hours: Microbiology 06/22/22 06:39 Blood Blood Culture - Final Proteus mirabilis 06/22/22 06:39 Blood Blood Culture - Preliminary Proteus mirabilis 06/22/22 06:39 Urine,Catheterized Urine Culture - Preliminary Proteus mirabilis Gram Negative Rods 06/23/22 00:22 Blood Blood Culture - Preliminary NO GROWTH AFTER 48 HOURS 06/22/22 06:45 Urine,Catheterized Urine Culture - Final NO GROWTH AFTER 48 HOURS Results Data Completed and Pending Labs on day of discharge: Labs from last 24 hours 06/25/22 06/25/22 06/25/22 07:37 07:37 04:37 WBC 20.6 H* D RBC 3.52 L Hgb 8.6 L Hct 27
--- NOTE | 2022-06-25 10:50 | EXP.PHA.PN ---
Subjective *Date: 06/25/22 *Time: 10:50 Medical Exam Vital signs and Labs for Last 24 Hours: Vital Signs Temp Pulse Pulse Resp BP Pulse Ox 06/25/22 08:00 90 98 06/25/22 08:00 90 06/25/22 08:14 98.9 F 06/25/22 07:46 100.0 F H 06/25/22 04:00 101 H 99 06/25/22 06:00 107 H 15 108/45 L 100 06/25/22 04:00 120 H 06/25/22 04:45 138/61 06/25/22 04:00 94 H 19 129/70 98 06/24/22 20:00 100 H 06/25/22 02:00 68 17 112/57 L 99 06/25/22 00:00 99 06/25/22 00:00 85 20 103/51 L 100 06/24/22 21:00 104/68 L 06/24/22 20:45 112/53 L 06/24/22 19:45 107/51 L 06/24/22 22:00 89 15 95/55 L 100 06/24/22 21:25 100 H 06/24/22 20:00 98 H 99 06/24/22 20:00 94 H 19 105/56 L 99 06/24/22 19:15 94 H 15 103/60 L 99 06/24/22 16:00 106 H 06/24/22 16:00 94 H 19 92/62 L 100 06/24/22 14:00 112 H 17 93/54 L 100 06/24/22 15:50 97.0 F L 06/24/22 15:18 98 06/24/22 12:00 110 H 06/24/22 12:00 112 H 17 90/52 L 97 06/24/22 11:42 96.6 F L 06/24/22 11:33 96.9 F L Intake and Output 06/24/22 06/25/22 06/25/22 23:59 07:59 15:59 Intake Total 240 / 1883 1293 / 1423.841 130.841 / 1423.841 Output Total 0 / 550 600 / 600 0 / 600 Balance 240 / 1333 693 / 823.841 130.841 / 823.841 Intake: Intake, Oral Amount 240 / 360 120 / 120 Intake, Total IV Amount 1173 / 1303.841 130.841 / 1303.841 Cefepime HCl 2 gm In 0.9 % 100 / 100 Sodium Chloride 100 ml @ 200 mls/hr IV Q12H [facility] Rx#:[id number] Lactated Ringers 1000ML 1,000 973 / 973 ml @ 250 mls/hr IV .Q4H [facility] Rx# :[id number] Metronidaz/Sod Chl 500 mg In 100 / 100 100 ml @ 100 mls/hr IV Q6H [facility] Rx#:[id number] Output: Output, Urine Amount 0 / 350 600 / 600 0 / 600 Other: Number of Unmeasured Voids 0 0 0 Weight 72.575 kg Patient Weight 06/25/22 23:59 Weight 72.575 kg Laboratory Results - last 24 hr 06/24/22 07:40: WBC 37.9 H* D, RBC 3.39 L, Hgb 8.5 L, Hct 27.2 L, MCV 80.0 L, MCH 24.9 L, MCHC 31.1 L, RDW 18.2 H, Plt Count 280 D, MPV 10.0, Neut % (Auto) 94.6 H, Lymph % (Auto) 3.1 L, [place] % (Auto) 1.9, Eos % (Auto) 0.2, Baso % (Auto) 0.1, Neut # (Auto) 35.9 H, Lymph # (Auto) 1.2, [place] # (Auto) 0.7, Eos # (Auto) 0.1, Baso # (Auto) 0.0, Total Counted 100, Neutrophils % (Manual) 94 H, Lymphocytes % (Manual) 4 L, Monocytes % (Manual) 2, Platelet Estimate Normal, RBC Morphology Not Reportable, Hypochromasia 1+, Anisocytosis 1+, Microcytosis 1+ 06/24/22 11:57: POC Glucose 106 06/24/22 16:34: POC Glucose 123 H 06/24/22 20:43: POC Glucose 148 H 06/25/22 04:37: POC Glucose 95 06/25/22 07:37: Sodium 132 L, Potassium 3.7, Chloride 105, Carbon Dioxide 18 L, Anion Gap 12.7, BUN 56 H, Creatinine 2.10 H, Estimated Creat Clear 26, Estimated GFR 23 L, Est GFR ( Amer) 28 L, Glucose 74 D, Calcium 7.0 L, Total Bilirubin 0.8, AST 172 H D, ALT 156 H D, Alkaline Phosphatase 590 H, Total Protein 4.9 L, Albumin 2.1 L, Globulin 2.8, Albumin/Globulin Ratio 0.8 L 06/25/22 07:37: WBC 20.6 H* D, RBC 3.52 L, Hgb 8.6 L, Hct 27.9 L, MCV 79.5 L, MCH 24.6 L, MCHC 30.9 L, RDW 18.4 H, Plt Count 228, MPV 9.1, Neut % (Auto) 97.1 H, Lymph % (Auto) 1.1 L, [place] % (Auto) 1.5 L, Eos % (Auto) 0.1, Baso % (Auto) 0.2, Neut # (Auto) 20.0 H, Lymph # (Auto) 0.2 L, [place] # (Auto) 0.3, Eos # (Auto) 0.0, Baso # (Auto) 0.1, Total Counted 100, Neutrophils % (Manual) 97 H, Lymphocytes % (Manual) 2 L, Monocytes % (Manual) 1 L, Platelet Estimate Normal, Hypochromasia 1+, Anisocytosis 1+, Microcytosis 1+ I & O for Labs for Last 24 Hours: Intake & Output 06/22/22 06/23/22 06/24/22 06/25/22 23:59 23:59 23:59 23:59 Intake Total 6298.126 / 6298.126 1908.868 / 1908.868 810 / 1883 1423.841 / 1423.841 Output Total 100 / 200 200 / 200 550 / 550 600 / 600 Balance 6198.126 / 6098.126 1708.868 / 1708.868 260 / 133
[2022-06-25 14:43] LABS: Vancomycin,Trough 12.9 ug/mL (5.0-10.0)
--- NOTE | 2022-06-25 14:49 | EXP.PHA.CONS ---
Pharmacy Consult Date: 06/25/22 Time: 14:49 Referring provider: DR Zeke SANTOYO Reason for Consult:: VANCOMYCIN PEAK AND TROUGH LEVEL OBTAINED. Allergies Allergy/AdvReac Type Severity Reaction Status Date / Time atorvastatin [From Lipitor] Allergy Unknown Unknown Verified 06/18/22 02:36 allergy reaction simvastatin [From Zocor] Allergy Unknown Unknown Verified 06/18/22 02:36 allergy reaction Home Medications Medication Instructions Recorded Confirmed Type Lactobacillus acidophilus 1 tab PO DAILY Probiotic 06/18/22 06/22/22 History acetaminophen 500 mg tablet 500 mg PO Q6HP PRN Pain or Fever, 06/18/22 06/22/22 History Mild aspirin 81 mg chewable tablet 81 mg PO DAILY heart health 06/18/22 06/22/22 History baclofen 10 mg tablet 10 mg PO QID muscle spasm 06/18/22 06/22/22 History diazepam 5 mg tablet 5 mg PO HS Insomnia 06/18/22 06/22/22 History dimethicone 1 %-zinc oxide 10 1 applic topical QID rash 06/18/22 06/22/22 History %-vit A and D-aloe vera topical cream (Zinc Oxide Diaper Cream) ferrous sulfate 325 mg (65 mg 325 mg PO Q48H Supplement 06/18/22 06/22/22 History iron) tablet,delayed release insulin glargine 100 unit/mL 7 unit SQ HS Diabetes 06/18/22 06/22/22 History subcutaneous solution insulin lispro 100 unit/mL See Protocol SQ ACHS Diabetes 06/18/22 06/22/22 History subcutaneous solution (Humalog U-100 Insulin) loperamide 2 mg tablet 2 mg PO Q6HP PRN Loose Stools 06/18/22 06/22/22 History melatonin 5 mg tablet 15 mg PO HS Insomnia 06/18/22 06/22/22 History multivitamin,jb-hbre-Ww-FA-min 1 tab PO DAILY Supplement 06/18/22 06/22/22 History sennosides 8.6 mg tablet (senna) 8.6 mg PO Q48H constipation 06/18/22 06/22/22 History pravastatin 40 mg tablet 40 mg PO HS Cholesterol 06/22/22 06/22/22 History sulfamethoxazole 400 1 tab PO BID Urinary tract 06/22/22 06/22/22 History mg-trimethoprim 80 mg tablet infection New Prescriptions to Start Prescriptions: Height: 1.63 m Weight: 72.575 kg Laboratory Results:: Laboratory Results - last 24 hr 06/24/22 16:34: POC Glucose 123 H 06/24/22 20:43: POC Glucose 148 H 06/25/22 04:37: POC Glucose 95 06/25/22 07:37: Sodium 132 L, Potassium 3.7, Chloride 105, Carbon Dioxide 18 L, Anion Gap 12.7, BUN 56 H, Creatinine 2.10 H, Estimated Creat Clear 26, Estimated GFR 23 L, Est GFR ( Amer) 28 L, Glucose 74 D, Calcium 7.0 L, Total Bilirubin 0.8, AST 172 H D, ALT 156 H D, Alkaline Phosphatase 590 H, Total Protein 4.9 L, Albumin 2.1 L, Globulin 2.8, Albumin/Globulin Ratio 0.8 L 06/25/22 07:37: WBC 20.6 H* D, RBC 3.52 L, Hgb 8.6 L, Hct 27.9 L, MCV 79.5 L, MCH 24.6 L, MCHC 30.9 L, RDW 18.4 H, Plt Count 228, MPV 9.1, Neut % (Auto) 97.1 H, Lymph % (Auto) 1.1 L, [place] % (Auto) 1.5 L, Eos % (Auto) 0.1, Baso % (Auto) 0.2, Neut # (Auto) 20.0 H, Lymph # (Auto) 0.2 L, [place] # (Auto) 0.3, Eos # (Auto) 0.0, Baso # (Auto) 0.1, Total Counted 100, Neutrophils % (Manual) 97 H, Lymphocytes % (Manual) 2 L, Monocytes % (Manual) 1 L, Platelet Estimate Normal, Hypochromasia 1+, Anisocytosis 1+, Microcytosis 1+ 06/25/22 13:40: Vancomycin Trough 12.9 H Medical History: Medical History (Updated 06/22/22 @ 14:18 by Jaguar Gayle MD) Acute delirium Altered mental status Atrial fibrillation CRI (chronic renal insufficiency) Diabetes mellitus Elevated troponin Hyperlipidemia Septic shock Status post CVA Assessment and Plan Assessment and plan all Dx Assessment and Plan for all problems:: VANCOMYCIN PEAK AND TROUGH LEVEL OBTAINED. VANCOMYCIN TROUGH: 12.9 MCG/ML (06/25/22 1340) VANCOMYCIN PEAK: 21.3 MCG/ML (06/25/22 1900) RECOMMENDATION: CONTINUE CURRENT DOSE OF VANCOMYCIN 1000 MG Q36H. VANCOMYCIN STOPPED OF 06/26/22
[2022-06-25 15:25] LABS: POC Glucose,Bedside 105 (70-110)
--- NOTE | 2022-06-25 17:11 | PC.NURSE ---
levo gtt infusing at 5mcg/min. pt very tired today. she does open her eyes to verbal stimuli but falls back to sleep easily. she was able to take morning po medications but has not been able to take any po medications this afternoon or evening. dr leal made aware of pt difficulty to arouse. to hold tramadol moving forward. she continues to require 1lnc for o2 support. reid cath in place. nsr on telemetry this shift. has been at bedside most of the day.
[2022-06-25 19:35] LABS: Vancomycin,Peak 21.3 ug/ml (11-39)
--- NOTE | 2022-06-25 21:27 | PC.NURSE ---
Notified Kristian Chávez pt continues to be lethargic, unable to take po HS meds. Is opening eyes to verbal stimuli but falls right back to sleep. Kristian chávez states ok to hold po hs meds including xarelto and amiodarone. States she will order Loveonox SQ for tonight.
[2022-06-25 22:17] LABS: POC Glucose,Bedside 102 (70-110)
[2022-06-25 22:17] LABS: POC Glucose,Bedside 110 (70-110)
--- NOTE | 2022-06-25 23:12 | PC.NURSE ---
2300 BP 113/65, Levo gtt turned down to 4mcg/min
[2022-06-26] VITALS (19 sets, daily range): BP systolic 89–131; BP diastolic 48–66; PULSE 80–134; RESP 11–21; TEMP 36.2–36.6; O2SAT 95–100; BMI 27.3
--- NOTE | 2022-06-26 01:39 | PC.NURSE ---
Pt more alert at this time, oriented to person and place, c/o generalized pain with most pain in left foot and hand. Kristian perez notified and states to give one time dose of baclofen 10mg. Also notified [employer] that pt has only had 60ml OU since 1999 and pt sounds very wet. States she will order a chest ct at this time. Orders read back verified and carried out
--- NOTE | 2022-06-26 01:40 | XR_ITS ---
PROCEDURE INFORMATION: Exam: XR Chest Exam date and time: 06/26/2022 2:03 AM Age: 77 years old Clinical indication: Shortness of breath; Additional info: Shortness of air TECHNIQUE: Imaging protocol: Radiologic exam of the chest. Views: 1 view. COMPARISON: CR XR CHEST PORTABLE 06/22/2022 3:15 PM FINDINGS: Limitations: Evaluation limited by patient body habitus. Tubes, catheters and devices: Right IJ central venous catheter remains in place, with tip projecting over the right atrium. Lungs: Left retrocardiac space not well seen, with obscuration of the left hemidiaphragm. Could represent left lower lobe consolidation or atelectasis. Lungs are otherwise clear. Pleural spaces: Unremarkable. No pleural effusion. No pneumothorax. Heart/Mediastinum: No cardiomegaly. Bones/joints: Osseous structures are unchanged. IMPRESSION: Left retrocardiac space not well seen, with obscuration of the left hemidiaphragm. Could represent left lower lobe consolidation or atelectasis.
--- NOTE | 2022-06-26 02:06 | PC.NURSE ---
0200 bp 131/66, levo gtt turned down to 3mcg/min
--- NOTE | 2022-06-26 02:30 | PC.NURSE ---
Kristian perez states to bous 250ml NS bag over 1 hr.
[2022-06-26 07:44] LABS: POC Glucose,Bedside 103 (70-110)
[2022-06-26 08:09] LABS: Basophils # 0.1 K/mm3 (0-0.2); Basophils % 0.2 % (0.1-2.0); Eosinophils % 0.1 % (0.1-12.0); Hematocrit 32.4 % (37.0-47.0); Hemoglobin 9.8 g/dL (12.2-16.2); Lymphocytes # 1.1 K/mm3 (0.7-4.5); Lymphocytes % 3.3 % (10-50); Mean Corpuscular HGB Conc 30.2 g/dL (31.8-35.4); Mean Corpuscular Hemoglobin 24.6 pg (27.0-31.2); Mean Corpuscular Volume 81.4 fl (81-99); Mean Platelet Volume 9.4 fl (7.4-10.4); Monocytes # 0.8 K/mm3 (0.1-1.0); Monocytes % 2.5 % (1.7-9.3); Neutrophils # 30.6 K/mm3 (1.8-7.8); Neutrophils % 93.8 % (37.0-80.0); Platelet Count 200 K/mm3 (142-424); Red Blood Count 3.98 M/mm3 (4.20-5.40); Red Cell Distribution Width 18.4 % (11.5-17.5); White Blood Count 32.6 K/mm3 (4.8-10.8)
[2022-06-26 08:14] LABS: Chloride 106 mmol/L (98-107); Potassium 4.1 mmoL/L (3.5-5.1); Sodium 135 mmol/L (136-145)
[2022-06-26 08:16] LABS: Alanine Aminotransferase 136 U/L (12-78); Alkaline Phosphatase 176 U/L (38-126); Aspartate Amino Transferase 100 U/L (14-36); Bilirubin,Total 0.6 mg/dl (0.2-1.3); Blood Urea Nitrogen 57 mg/dl (7-17); Creatinine Clearance Estimated 23 mL/min (50-200); Estimated Glomerular Filt Rate 20 ml/min (>60); GFR (African American) 24 ML/MIN (>60)
[2022-06-26 08:17] LABS: Albumin Level 2.2 g/dl (3.5-5.0); Albumin/Globulin Ratio 0.7 (1.1-1.8); Anion Gap 19.1 mEq/L (5-15); Calcium 7.3 mg/dl (8.4-10.2); Carbon Dioxide 14 mmol/L (22.0-30.0); Globulin 3.1 g/dL (1.3-3.2); Glucose 105 mg/dl (74-100); MANUAL DIFFERENTIAL MANUAL DIFFERENTIAL (MANUAL DIFF); Magnesium 1.6 mg/dl (1.6-2.3); Phosphorous 4.5 mg/dl (2.5-4.5); Total Protein,Serum 5.3 g/dl (6.3-8.2)
--- NOTE | 2022-06-26 08:51 | EXP.ACUTE.PN ---
Subjective *Date: 06/26/22 *Time: 09:32 Interval history: Patient continues to require norepinephrine overnight, blood pressure stable this morning. Receiving 1 L IV fluid over 4 hours this morning. Complaining of feeling short of breath however respiratory rate 15 and 100% on nasal cannula oxygen 1L. Patient states she aches all over. This is a chronic problem. Reviewed urine cultures. Interactive on exam this morning. Afebrile. Medical Exam Vital signs and Labs for Last 24 Hours: Vital Signs Temp Pulse Pulse Resp BP Pulse Ox 06/26/22 08:00 97.4 F L 06/26/22 06:00 97.2 F L 99 H 13 101/59 L 99 06/26/22 04:00 97.8 F 85 14 95/62 L 100 06/26/22 04:00 80 06/26/22 00:00 120 H 06/25/22 20:00 70 06/26/22 03:53 81 99 06/26/22 02:00 82 14 131/66 100 06/26/22 00:00 97.2 F L 99 H 14 116/58 L 95 06/25/22 23:33 100 06/25/22 20:00 100 06/25/22 23:00 113/65 06/25/22 22:00 100 H 15 105/56 L 100 06/25/22 20:00 97.0 F L 67 13 93/47 L 100 06/25/22 18:00 69 18 97/56 L 98 06/25/22 16:00 69 18 90/47 L 93 L 06/25/22 14:00 70 18 92/53 L 91 L 06/25/22 12:00 68 18 100/48 L 92 L 06/25/22 10:00 72 18 95/54 L 95 06/25/22 16:00 90 06/25/22 15:52 92 L 06/25/22 15:40 97.2 F L 06/25/22 12:00 80 06/25/22 11:27 97.7 F Intake and Output 06/25/22 06/26/22 06/26/22 23:59 07:59 15:59 Intake Total 155 / 2403.841 611.687 / 611.687 Output Total 30 / 780 110 / 110 Balance 125 / 1623.841 501.687 / 501.687 Intake: Intake, Oral Amount 120 / 480 Intake, Total IV Amount 35 / 1338.841 611.687 / 611.687 0.9 % Sodium Chloride 1000ML 247 / 247 500 ml @ 250 mls/hr IV .Q2H [facility] Rx#:[id number] Cefepime HCl 1 gm In 0.9 % 35 / 35 Sodium Chloride 50 ml @ 100 mls /hr IV Q12H [facility] Rx#:[id number] Metronidaz/Sod Chl 500 mg In 90 / 90 100 ml @ 100 mls/hr IV Q6H [facility] Rx#:[id number] Norepinephrine Bitartrate 8 mg 119 / 119 In 0.9 % Sodium Chloride 250 ml @ 7 MCG/MIN 13.545 mls/hr IV . Q19H3M [facility] Rx#:[id number] Output: Output, Urine Amount 0 / 750 Output, Urine Amount (Catheter) 110 / 110 Erazo 110 / 110 Other: Number of Unmeasured Voids 0 Weight 72.575 kg Patient Weight 06/26/22 23:59 Weight 72.575 kg Laboratory Results - last 24 hr 06/25/22 07:37: WBC 20.6 H* D, RBC 3.52 L, Hgb 8.6 L, Hct 27.9 L, MCV 79.5 L, MCH 24.6 L, MCHC 30.9 L, RDW 18.4 H, Plt Count 228, MPV 9.1, Neut % (Auto) 97.1 H, Lymph % (Auto) 1.1 L, [place] % (Auto) 1.5 L, Eos % (Auto) 0.1, Baso % (Auto) 0.2, Neut # (Auto) 20.0 H, Lymph # (Auto) 0.2 L, [place] # (Auto) 0.3, Eos # (Auto) 0.0, Baso # (Auto) 0.1, Total Counted 100, Neutrophils % (Manual) 97 H, Lymphocytes % (Manual) 2 L, Monocytes % (Manual) 1 L, Platelet Estimate Normal, Hypochromasia 1+, Anisocytosis 1+, Microcytosis 1+ 06/25/22 11:31: POC Glucose 105 06/25/22 13:40: Vancomycin Trough 12.9 H 06/25/22 17:09: POC Glucose 102 06/25/22 19:05: Vancomycin Peak 21.3 06/25/22 21:38: POC Glucose 110 06/26/22 05:06: POC Glucose 103 06/26/22 07:55: WBC 32.6 H* D, RBC 3.98 L, Hgb 9.8 L, Hct 32.4 L, MCV 81.4, MCH 24.6 L, MCHC 30.2 L, RDW 18.4 H, Plt Count 200, MPV 9.4, Neut % (Auto) 93.8 H, Lymph % (Auto) 3.3 L, [place] % (Auto) 2.5, Eos % (Auto) 0.1, Baso % (Auto) 0.2, Neut # (Auto) 30.6 H, Lymph # (Auto) 1.1, [place] # (Auto) 0.8, Eos # (Auto) 0.0, Baso # (Auto) 0.1 06/26/22 07:55: Sodium 135 L, Potassium 4.1, Chloride 106, Carbon Dioxide 14 L, Anion Gap 19.1 H, BUN 57 H, Creatinine 2.40 H, Estimated Creat Clear 23, Estimated GFR 20 L, Est GFR ( Amer) 24 L, Glucose 105 H, Calcium 7.3 L, Phosphorus 4.5, Magnesium 1.6, Total Bilirubin 0.6, AST 100 H D, ALT 136 H, Alkaline Phosphatase 176 H, Total Protein 5.3 L, Albumin 2.2 L, Globulin 3.1, Albumin/Globulin Ratio 0.7 L
[2022-06-26 09:22] LABS: Anisocytosis 1+; Lymphocytes % 6 % (10-50); Monocytes % 1 % (2-9); Neutrophils % 93 % (42-76); Ovalocytes 1+; Platelet Estimate Normal; Total Cells Counted 100
[2022-06-26 09:23] LABS: Burr Cells 1+; Poikilocytosis 1+
--- NOTE | 2022-06-26 09:40 | EXP.PULM.PN ---
Subjective *Date: 06/26/22 *Time: 11:12 Interval history: No acute respiratory events over the weekend Pulmonology Exam Inpatient Vital signs and Labs for Last 24 Hours: Temp Pulse Resp BP Pulse Ox 97.4 F L 123 H 14 96/56 L 100 06/26/22 08:00 06/26/22 08:00 06/26/22 08:00 06/26/22 08:00 06/26/22 08:00 Laboratory Results - last 24 hr 06/25/22 11:31: POC Glucose 105 06/25/22 13:40: Vancomycin Trough 12.9 H 06/25/22 17:09: POC Glucose 102 06/25/22 19:05: Vancomycin Peak 21.3 06/25/22 21:38: POC Glucose 110 06/26/22 05:06: POC Glucose 103 06/26/22 07:55: WBC 32.6 H* D, RBC 3.98 L, Hgb 9.8 L, Hct 32.4 L, MCV 81.4, MCH 24.6 L, MCHC 30.2 L, RDW 18.4 H, Plt Count 200, MPV 9.4, Neut % (Auto) 93.8 H, Lymph % (Auto) 3.3 L, [place] % (Auto) 2.5, Eos % (Auto) 0.1, Baso % (Auto) 0.2, Neut # (Auto) 30.6 H, Lymph # (Auto) 1.1, [place] # (Auto) 0.8, Eos # (Auto) 0.0, Baso # (Auto) 0.1, Total Counted 100, Neutrophils % (Manual) 93 H, Lymphocytes % (Manual) 6 L, Monocytes % (Manual) 1 L, Platelet Estimate Normal, Poikilocytosis 1+, Anisocytosis 1+, Ovalocytes 1+, [place] Cells 1+ 06/26/22 07:55: Sodium 135 L, Potassium 4.1, Chloride 106, Carbon Dioxide 14 L, Anion Gap 19.1 H, BUN 57 H, Creatinine 2.40 H, Estimated Creat Clear 23, Estimated GFR 20 L, Est GFR ( Amer) 24 L, Glucose 105 H, Calcium 7.3 L, Phosphorus 4.5, Magnesium 1.6, Total Bilirubin 0.6, AST 100 H D, ALT 136 H, Alkaline Phosphatase 176 H, Total Protein 5.3 L, Albumin 2.2 L, Globulin 3.1, Albumin/Globulin Ratio 0.7 L I & O for Labs for Last 24 Hours: Intake & Output 06/23/22 06/24/22 06/25/22 06/26/22 23:59 23:59 23:59 23:59 Intake Total 1908.868 / 1908.868 810 / 1883 2403.841 / 2403.841 611.687 / 611.687 Output Total 200 / 200 550 / 550 780 / 780 110 / 110 Balance 1708.868 / 1708.868 260 / 1333 1623.841 / 1623.841 501.687 / 501.687 Weight 145 lb 14.4 oz 148 lb 2.41 oz 160 lb 6.428 oz 160 lb Microbiology Reports for the Last 24 Hours: Microbiology 06/23/22 00:22 Blood Blood Culture - Preliminary NO GROWTH AFTER 48 HOURS Constitutional: Present severe distress Head: Present normocephalic and atraumatic ENT: Present normal exam, normal oropharynx and mucous membranes moist Neck: Present normal inspection and full ROM Respiratory: Present rhonchi, normal respiratory effort and able to speak in complete sentences; Absent prolonged expiratory phase, respiratory distress or wheezes Cardiac: Present S1/S2, Tachycardia and radial pulses present GI: Present soft and distention; Absent tenderness or guarding Rectal (female): Present deferred (female): Present deferred Skin: Present intact; Absent cyanosis or jaundice Neuro: Present awake; Absent alert or oriented x 3 Extremities: Present normal inspection and edema; Absent clubbing or cyanosis Psychiatric: Present cooperative and unable to assess Assessment and Plan *Assessment and plan (1) Severe sepsis with acute organ dysfunction: Status: Acute Category: Medical Code(s): A41.9 - Sepsis, unspecified organism; R65.20 - Severe sepsis without septic shock (2) Septic shock: Status: Acute Category: Medical Code(s): A41.9 - Sepsis, unspecified organism; R65.21 - Severe sepsis with septic shock Plan Ms. 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 Febrile and neutrophilic leukocytosis upon admission. Urine cultures from 06/18/2022 positive for E. coli and Klebsiella, patient was discharged home on Bactrim from the ER. Patient went to
--- NOTE | 2022-06-26 09:43 | US_ITS ---
FINAL REPORT TECHNIQUE: Sonographic images were obtained of the retroperitoneum. CLINICAL HISTORY: Concern for pyelonephritis/renal abscess FINDINGS: The right kidney measures 10.0 cm with increased echogenicity worrisome for medical renal disease. The left kidney measures 12.1 cm with moderate left hydronephrosis. The spleen measures 9.5 cm. There is mild free fluid in the abdomen. IMPRESSION: Increased renal echogenicity worrisome for medical renal disease. Moderate left hydronephrosis. Mild free fluid in the abdomen. Reviewed, Interpreted and Dictated by Juan Daniel Bansal III, MD Transcribed by Jt Broussard Authenticated and [facility]
--- NOTE | 2022-06-26 10:45 | PC.NURSE ---
Dr. Gayle/Bijal notified of pt's coughing after drinking her nectar thickened liquids. Verbal order given for barium swallow and Lasix.
--- NOTE | 2022-06-26 10:59 | EXP.PHA.PN ---
Subjective *Date: 06/26/22 *Time: 10:59 Medical Exam Vital signs and Labs for Last 24 Hours: Vital Signs Temp Pulse Pulse Resp BP Pulse Ox 06/26/22 10:00 128 H 14 108/59 L 100 06/26/22 08:00 97.4 F L 123 H 14 96/56 L 100 06/26/22 08:00 122 H 100 06/26/22 08:00 97.4 F L 06/26/22 06:00 97.2 F L 99 H 13 101/59 L 99 06/26/22 04:00 97.8 F 85 14 95/62 L 100 06/26/22 04:00 80 06/26/22 00:00 120 H 06/25/22 20:00 70 06/26/22 03:53 81 99 06/26/22 02:00 82 14 131/66 100 06/26/22 00:00 97.2 F L 99 H 14 116/58 L 95 06/25/22 23:33 100 06/25/22 20:00 100 06/25/22 23:00 113/65 06/25/22 22:00 100 H 15 105/56 L 100 06/25/22 20:00 97.0 F L 67 13 93/47 L 100 06/25/22 18:00 69 18 97/56 L 98 06/25/22 16:00 69 18 90/47 L 93 L 06/25/22 14:00 70 18 92/53 L 91 L 06/25/22 12:00 68 18 100/48 L 92 L 06/25/22 16:00 90 06/25/22 15:52 92 L 06/25/22 15:40 97.2 F L 06/25/22 12:00 80 06/25/22 11:27 97.7 F Intake and Output 06/25/22 06/26/22 06/26/22 23:59 07:59 15:59 Intake Total 155 / 2403.841 611.687 / 1462.687 851 / 1462.687 Output Total 30 / 780 110 / 155 45 / 155 Balance 125 / 1623.841 501.687 / 1307.687 806 / 1307.687 Intake: Intake, Oral Amount 120 / 480 Intake, Total IV Amount 35 / 1338.841 611.687 / 1462.687 851 / 1462.687 0.9 % Sodium Chloride 1000ML 247 / 1076 829 / 1076 500 ml @ 250 mls/hr IV .Q2H [facility] Rx#:[id number] Cefepime HCl 1 gm In 0.9 % 35 / 35 Sodium Chloride 50 ml @ 100 mls /hr IV Q12H [facility] Rx#:[id number] Metronidaz/Sod Chl 500 mg In 90 / 90 100 ml @ 100 mls/hr IV Q6H [facility] Rx#:[id number] Norepinephrine Bitartrate 8 mg 119 / 141 22 / 141 In 0.9 % Sodium Chloride 250 ml @ 7 MCG/MIN 13.545 mls/hr IV . Q19H3M [facility] Rx#:[id number] Output: Output, Urine Amount 0 / 750 Output, Urine Amount (Catheter) 110 / 155 45 / 155 Erazo 110 / 155 45 / 155 Other: Number of Unmeasured Voids 0 Weight 72.575 kg Patient Weight 06/26/22 23:59 Weight 72.575 kg Laboratory Results - last 24 hr 06/25/22 11:31: POC Glucose 105 06/25/22 13:40: Vancomycin Trough 12.9 H 06/25/22 17:09: POC Glucose 102 06/25/22 19:05: Vancomycin Peak 21.3 06/25/22 21:38: POC Glucose 110 06/26/22 05:06: POC Glucose 103 06/26/22 07:55: WBC 32.6 H* D, RBC 3.98 L, Hgb 9.8 L, Hct 32.4 L, MCV 81.4, MCH 24.6 L, MCHC 30.2 L, RDW 18.4 H, Plt Count 200, MPV 9.4, Neut % (Auto) 93.8 H, Lymph % (Auto) 3.3 L, [place] % (Auto) 2.5, Eos % (Auto) 0.1, Baso % (Auto) 0.2, Neut # (Auto) 30.6 H, Lymph # (Auto) 1.1, [place] # (Auto) 0.8, Eos # (Auto) 0.0, Baso # (Auto) 0.1, Total Counted 100, Neutrophils % (Manual) 93 H, Lymphocytes % (Manual) 6 L, Monocytes % (Manual) 1 L, Platelet Estimate Normal, Poikilocytosis 1+, Anisocytosis 1+, Ovalocytes 1+, [place] Cells 1+ 06/26/22 07:55: Sodium 135 L, Potassium 4.1, Chloride 106, Carbon Dioxide 14 L, Anion Gap 19.1 H, BUN 57 H, Creatinine 2.40 H, Estimated Creat Clear 23, Estimated GFR 20 L, Est GFR ( Amer) 24 L, Glucose 105 H, Calcium 7.3 L, Phosphorus 4.5, Magnesium 1.6, Total Bilirubin 0.6, AST 100 H D, ALT 136 H, Alkaline Phosphatase 176 H, Total Protein 5.3 L, Albumin 2.2 L, Globulin 3.1, Albumin/Globulin Ratio 0.7 L I & O for Labs for Last 24 Hours: Intake & Output 06/23/22 06/24/22 06/25/22 06/26/22 23:59 23:59 23:59 23:59 Intake Total 1908.868 / 1908.868 810 / 1883 2403.841 / 2403.841 1462.687 / 1462.687 Output Total 200 / 200 550 / 550 780 / 780 155 / 155 Balance 1708.868 / 1708.868 260 / 1333 1623.841 / 6133.258 2713.687 / 1307.687 Weight 66.179 kg 67.2 kg 72.757 kg 72.575 kg Microbiology Reports for the Last 24 Hours: Microbiology 06/22/22 06:39 Urine,Catheterized Urine Culture - Preliminary Proteus m
--- NOTE | 2022-06-26 11:06 | FL_ITS ---
FINAL REPORT CLINICAL HISTORY: C/o wet, gurgling voice. Concern for aspiration. 2.23min fluoro time. FINDINGS: MODIFIED BARIUM SWALLOW History: Dysphagia. FINDINGS: Fluoroscopy was provided for the speech pathologist to evaluate the swallowing mechanism. The patient was given several different consistencies of barium while the swallow was visualized fluoroscopically. The report of the speech pathologist should be consulted prior to making dietary decisions. FLUOROSCOPY TIME: 2 minutes 23 seconds. 28 cine runs were obtained IMPRESSION: Modified barium swallow under fluoroscopic guidance. Please see the report of the speech pathologist for more detail. Films reviewed , interpreted and dictated by Dr. Bansal. Transcribed by Ricky Polanco PA-C. Reviewed, Interpreted and Dictated by Juan Daniel Bansal III, MD Transcribed by PONCHO Augustin Authenticated and [facility]
[2022-06-26 11:08] LABS: POC Glucose,Bedside 111 (70-110)
--- NOTE | 2022-06-26 11:10 | EXP.CARD.PN ---
Subjective Subjective Date: 06/26/22 Time: 08:00 Principal diagnosis: atrial fibrillation Interval history: This is a 77-year-old white female who was admitted to the hospital with UTI, sepsis and atrial fibrillation with RVR. On Levo for pressor support. Currently sinus tach rate 120s. AM labs reviewed. Complaining of bodyaches. Exam Data for Last 24 hours Vital signs and Labs for Last 24 Hours: Temp Pulse Resp BP Pulse Ox 97.4 F L 128 H 14 108/59 L 100 06/26/22 08:00 06/26/22 10:00 06/26/22 10:00 06/26/22 10:00 06/26/22 10:00 Laboratory Results - last 24 hr 06/25/22 11:31: POC Glucose 105 06/25/22 13:40: Vancomycin Trough 12.9 H 06/25/22 17:09: POC Glucose 102 06/25/22 19:05: Vancomycin Peak 21.3 06/25/22 21:38: POC Glucose 110 06/26/22 05:06: POC Glucose 103 06/26/22 07:55: WBC 32.6 H* D, RBC 3.98 L, Hgb 9.8 L, Hct 32.4 L, MCV 81.4, MCH 24.6 L, MCHC 30.2 L, RDW 18.4 H, Plt Count 200, MPV 9.4, Neut % (Auto) 93.8 H, Lymph % (Auto) 3.3 L, [place] % (Auto) 2.5, Eos % (Auto) 0.1, Baso % (Auto) 0.2, Neut # (Auto) 30.6 H, Lymph # (Auto) 1.1, [place] # (Auto) 0.8, Eos # (Auto) 0.0, Baso # (Auto) 0.1, Total Counted 100, Neutrophils % (Manual) 93 H, Lymphocytes % (Manual) 6 L, Monocytes % (Manual) 1 L, Platelet Estimate Normal, Poikilocytosis 1+, Anisocytosis 1+, Ovalocytes 1+, [place] Cells 1+ 06/26/22 07:55: Sodium 135 L, Potassium 4.1, Chloride 106, Carbon Dioxide 14 L, Anion Gap 19.1 H, BUN 57 H, Creatinine 2.40 H, Estimated Creat Clear 23, Estimated GFR 20 L, Est GFR ( Amer) 24 L, Glucose 105 H, Calcium 7.3 L, Phosphorus 4.5, Magnesium 1.6, Total Bilirubin 0.6, AST 100 H D, ALT 136 H, Alkaline Phosphatase 176 H, Total Protein 5.3 L, Albumin 2.2 L, Globulin 3.1, Albumin/Globulin Ratio 0.7 L 06/26/22 10:48: POC Glucose 111 H I & O for Last 24 hours: Intake & Output 06/23/22 06/24/22 06/25/22 06/26/22 23:59 23:59 23:59 23:59 Intake Total 1908.868 / 1908.868 810 / 1883 2403.841 / 2403.841 1616.687 / 1616.687 Output Total 200 / 200 550 / 550 780 / 780 155 / 155 Balance 1708.868 / 1708.868 260 / 1333 1623.841 / 2186.734 4912.687 / 1461.687 Weight 145 lb 14.4 oz 148 lb 2.41 oz 160 lb 6.428 oz 160 lb Microbiology Reports for the Last 24 Hours: Microbiology 06/22/22 06:39 Urine,Catheterized Urine Culture - Preliminary Proteus mirabilis Gram Negative Rods 06/23/22 00:22 Blood Blood Culture - Preliminary NO GROWTH AFTER 48 HOURS Constitutional Constitutional: no acute distress *Routine Respiratory Exam Respiratory: Present CTA bilaterally and symmetric chest movement *Routine Cardiovascular Exam Cardiovascular: Present Normal S1, Normal S2 and tachycardia *Routine Abdominal Exam Abdominal: Present soft and normoactive bowel sounds; Absent tenderness *Routine Extremities Exam Extremities: Present full ROM and normal capillary refill; Absent edema *Routine Skin Exam Skin: Present intact, dry and warm Detailed Neck Exam: Thyroids Thyroid: Absent bruit Progress Note: A&P Assessment and plan (1) Severe sepsis with acute organ dysfunction: Status: Acute (2) Septic shock: Status: Acute (3) Acute kidney injury superimposed on CKD: Status: Acute (4) Acute UTI (urinary tract infection): Status: Acute (5) Acute delirium: Status: Acute (6) Altered mental status: Status: Acute Assessment and Plan Assessment and Plan for All Diagnoses:: Assessment and Plan for All Diagnoses:: Plan: 1.? The patient was admitted to the hospital for atrial fibrillation with RVR, UTI and sepsis.? The patient is currently being treated for her UTI and sepsis with IV antibiotics.? Will defer this to the hospitalist. 2.? The patient was in atrial fibrillation with RVR.? She was initially started on diltiazem drip which did convert her to sinus rhythm but she got hypotensive so the diltiazem had to be stopped.? She is now on
--- NOTE | 2022-06-26 13:22 | PC.NURSE ---
Pt off floor for barium swallow.
--- NOTE | 2022-06-26 13:42 | PC.NURSE ---
pt returned at this time from barium swallow. vss. see vs documentation.
--- NOTE | 2022-06-26 14:35 | PC.NURSE ---
Dr. Appiah at bedside speaking with patients regarding goals and plan of care.
--- NOTE | 2022-06-26 14:39 | HMH.SLMBS2 ---
Speech & Language Evaluation Speech/Language Mod Barium Swallow Start: 06/26/22 11:06 Freq: ONCE Status: Complete Protocol: Document 06/26/22 14:07 OLESYA (Rec: 06/26/22 14:39 OLESYA [id number]) General Information General Current Food Consistancy Mechanical Soft,[place] Liquids Oxygen Status Nasal Cannula Facial Symmetry Patient Baseline Ability to Follow Directions Poor Communication Ability Moderate Impairment MBS Recommendations Diet Dietary Recommendations Pureed,Honey Liquids Treatment/Strategies Strategy/Precaution Recommend Sitting Upright (90 deg),Small Bites and Sips,Alternate Liquids/Solids Mod Barium Swallow Impressions Summary and Impressions Oral Phase Impression Moderate Impairment Oral Phase Summary Moderate oral dysphagia. Tongue pumping was noted with all trials, which is consistent with dementia. Prolonged AP transit time noted with puree and pudding. Pt refused all solid trials on MBSS, no [employer] is u/a to fully assess mastication. Premature spillage to the pyriform sinuses present 2' decreased back of tongue control. Pharyngeal Phase Impression Moderate Impairment Pharyngeal Phase Summary Moderate pharyngeal impairment . Pt aspirated initial trial of nectar thick liquids. Pt did cough but was unable to clear material from the airway and laryngeal vestibule. Consistent transient penetration noted with other nectar thick trials. Inconsistent transient penetration noted with honey thick liquids. Significantly delayed swallow with all consistencies trialed. Mild- moderate pharyngeal residue 2' decreased hyolaryngeal elevation and excursion, decreased BOT retraction, and reduced pharyngeal squeeze. Pt was unable to clear residue, but was able to decrease with honey thick liquid wash. Speech/Language MBS Assessment/Goals/Plan Assessment Date of E
--- NOTE | 2022-06-26 14:50 | DIET.NUTRFU ---
Patient continues to decline, speech re-evaluated her swallow today and downgraded to pureed/honey thick liquids. Meal intake has been poor only consuming 10% off meals. Supplements are in place. Provider also reviewed plan of care with and he is realistic and may consider hospice if does not improve soon.
--- NOTE | 2022-06-26 17:12 | PC.NURSE ---
Called Dr. Appiah in regards to pt's heart rate 130's-140's. Levophed drip stopped at this time d/t pt's bp 145/50.
[2022-06-26 17:23] LABS: POC Glucose,Bedside 139 (70-110)
--- NOTE | 2022-06-26 18:01 | PC.NURSE ---
pt alert to self and where is she. pt has been yelling out intermittently t/o shift. upon entering room pt will stop and answer question. pt reports chronic pain, medicated per mar with scheduled Baclofen and one dose of Morphine. Initially on Levophed at 3 mcg. Levophed currently weaned off at this time. Dr. Appiah spoke with pt's today regarding poc and goals. LS diminished t/o. pt weaned from 1LNC to room air this shift. pt did go down for barium swallow and diet changed to pureed with honey thickened liquids. abdomen soft with active bowel sounds. f/c in place and urine output being trended. pt received bath today.
[2022-06-26 18:22] LABS: Chloride 107 mmol/L (98-107); Potassium 4.3 mmoL/L (3.5-5.1); Sodium 135 mmol/L (136-145)
[2022-06-26 18:25] LABS: Anion Gap 19.3 mEq/L (5-15); Blood Urea Nitrogen 61 mg/dl (7-17); Calcium 7.4 mg/dl (8.4-10.2); Carbon Dioxide 13 mmol/L (22.0-30.0); Creatinine Clearance Estimated 21 mL/min (50-200); Estimated Glomerular Filt Rate 18 ml/min (>60); GFR (African American) 22 ML/MIN (>60); Glucose 136 mg/dl (74-100)
[2022-06-26 20:42] LABS: POC Glucose,Bedside 136 (70-110)
--- NOTE | 2022-06-26 23:46 | PC.NURSE ---
bp 78/50 (59), restarted levophed drip at 4mcg/min
[2022-06-27] VITALS (17 sets, daily range): BP systolic 76–144; BP diastolic 34–58; PULSE 88–133; RESP 14–19; TEMP 35.8–37.1; O2SAT 83–100; BMI 27.7
--- NOTE | 2022-06-27 02:00 | PC.NURSE ---
bp 144/58 (86), held levophed drip at this time
[2022-06-27 05:52] LABS: POC Glucose,Bedside 130 (70-110)
--- NOTE | 2022-06-27 06:06 | PC.NURSE ---
bp 76/34 (48), restarted levophed drip at 6mcg/min
[2022-06-27 06:19] LABS: Basophils % 0.2 % (0.1-2.0); Eosinophils % 0.1 % (0.1-12.0); Hematocrit 33.5 % (37.0-47.0); Lymphocytes # 0.4 K/mm3 (0.7-4.5); Lymphocytes % 1.9 % (10-50); Mean Corpuscular HGB Conc 29.9 g/dL (31.8-35.4); Mean Corpuscular Hemoglobin 24.2 pg (27.0-31.2); Mean Corpuscular Volume 81.1 fl (81-99); Monocytes # 0.8 K/mm3 (0.1-1.0); Monocytes % 3.9 % (1.7-9.3); Neutrophils # 20.3 K/mm3 (1.8-7.8); Neutrophils % 93.9 % (37.0-80.0); Platelet Count 125 K/mm3 (142-424); Red Blood Count 4.14 M/mm3 (4.20-5.40); Red Cell Distribution Width 18.6 % (11.5-17.5); White Blood Count 21.7 K/mm3 (4.8-10.8)
[2022-06-27 06:26] LABS: Chloride 106 mmol/L (98-107); Potassium 3.8 mmoL/L (3.5-5.1); Sodium 135 mmol/L (136-145)
[2022-06-27 06:29] LABS: Alanine Aminotransferase 84 U/L (12-78); Albumin Level 2.1 g/dl (3.5-5.0); Albumin/Globulin Ratio 0.7 (1.1-1.8); Alkaline Phosphatase 303 U/L (38-126); Anion Gap 17.8 mEq/L (5-15); Aspartate Amino Transferase 38 U/L (14-36); Bilirubin,Total 0.7 mg/dl (0.2-1.3); Blood Urea Nitrogen 66 mg/dl (7-17); Calcium 7.5 mg/dl (8.4-10.2); Carbon Dioxide 15 mmol/L (22.0-30.0); Creatinine Clearance Estimated 21 mL/min (50-200); Estimated Glomerular Filt Rate 18 ml/min (>60); GFR (African American) 22 ML/MIN (>60); Globulin 2.9 g/dL (1.3-3.2); Glucose 113 mg/dl (74-100); MANUAL DIFFERENTIAL MANUAL DIFFERENTIAL (MANUAL DIFF); Phosphorous 4.5 mg/dl (2.5-4.5)
--- NOTE | 2022-06-27 06:59 | PC.NURSE ---
bp 90/45 (60), increased levophed drip to 8mcg/min
--- NOTE | 2022-06-27 07:02 | PC.NURSE ---
bp 79/48 (58), increased levophed drip to 10mcg/min
[2022-06-27 07:23] LABS: Anisocytosis 1+; Hypochromasia 1+; Lymphocytes % 2 % (10-50); Monocytes % 5 % (2-9); Myelocytes % 2 (0-1); Neutrophils % 86 % (42-76); Ovalocytes 1+; Platelet Estimate Slight Decrease; Poikilocytosis 1+; Total Cells Counted 100; Toxic Granulation 1+; Toxic Vacuolation 1+
--- NOTE | 2022-06-27 07:47 | US_ITS ---
FINAL REPORT CLINICAL HISTORY: elevated liver enzymes FINDINGS: Sonographic images of the right upper quadrant were obtained. A small right pleural effusion is seen. The pancreas is partially obscured. No focal hepatic abnormality is identified. The gallbladder appears normal without evidence of gallstones.There is no evidence of biliary ductal dilatation. The common duct measures 4mm. Limited images of the right kidney are unremarkable. There is a small amount of ascites. IMPRESSION: Small right pleural effusion. Small amount of ascites. Reviewed, Interpreted and Dictated by Juan Daniel Bansal III, MD Transcribed by Lizett Pollack Authenticated and . [facility]
--- NOTE | 2022-06-27 07:51 | EXP.ACUTE.PN ---
Subjective *Date: 06/27/22 *Time: 18:12 Interval history: Patient still in pain this morning. Kidney function no better. Stable on room air however sats are 89-92. Poor p.o. intake. No nausea or vomiting. Continuing to complain of diffuse pain. at bedside this afternoon. Had multiple discussions yesterday and today about goals of care. Prognosis is poor. Concern for poor p.o. tolerance, malnutrition, continued leukocytosis, and continued multiple organ dysfunction. states family is coming into town, would like to continue with current course of treatment and reevaluate tomorrow. Medical Exam Vital signs and Labs for Last 24 Hours: Vital Signs Temp Pulse Pulse Resp BP Pulse Ox 06/27/22 07:27 98.6 F 133 H 19 113/52 L 100 06/27/22 06:00 92 H 14 76/34 L 92 L 06/27/22 04:00 100 H 06/27/22 04:00 98.6 F 06/27/22 04:00 102 H 17 137/50 L 99 06/27/22 02:00 95 H 14 144/58 H 98 06/26/22 21:00 96 06/27/22 00:00 88 14 111/55 L 98 06/27/22 00:00 90 06/26/22 20:00 130 H 06/26/22 22:00 127 H 11 L 103/65 L 100 06/26/22 20:00 97.2 F L 134 H 21 113/61 100 06/26/22 16:00 130 H 06/26/22 17:54 97.3 F L 95 H 16 92/51 L 100 06/26/22 16:00 97.4 F L 06/26/22 15:28 99 06/26/22 15:27 99 06/26/22 15:25 134 H 16 100/50 L 98 06/26/22 14:00 130 H 16 107/54 L 98 06/26/22 12:00 90 06/26/22 13:43 120 H 16 116/64 100 06/26/22 08:00 123 H 06/26/22 11:52 97.7 F 91 H 16 89/48 L 99 06/26/22 10:00 128 H 14 108/59 L 100 06/26/22 08:00 97.4 F L 123 H 14 96/56 L 100 06/26/22 08:00 122 H 100 06/26/22 08:00 97.4 F L Intake and Output 06/26/22 06/26/22 06/27/22 15:59 23:59 07:59 Intake Total 1050 / 1873.687 2 / 1873.687 210 / 210 Output Total 135 / 350 45 / 350 560 / 560 Balance 915 / 1523.687 -43 / 1523.687 -350 / -350 Intake: Intake, Oral Amount 160 / 160 Intake, Total IV Amount 1050 / 1558 2 / 1558 50 / 50 0.9 % Sodium Chloride 1000ML 979 / 1226 500 ml @ 250 mls/hr IV .Q2H [facility] Rx#:[id number] Cefepime HCl 1 gm In 0.9 % 30 / 80 50 / 50 Sodium Chloride 50 ml @ 100 mls /hr IV Q12H [facility] Rx#:[id number] Norepinephrine Bitartrate 8 mg 41 / 162 2 / 162 In 0.9 % Sodium Chloride 250 ml @ 7 MCG/MIN 13.545 mls/hr IV . Q19H3M [facility] Rx#:[id number] Output: Output, Urine Amount 500 / 500 Output, Urine Amount (Catheter) 135 / 350 45 / 350 60 / 60 Erazo 135 / 350 45 / 350 60 / 60 Other: Number of Voids 0 Number of Unmeasured Voids 0 Weight 73.652 kg Patient Weight 06/27/22 23:59 Weight 73.652 kg Laboratory Results - last 24 hr 06/26/22 07:55: WBC 32.6 H* D, RBC 3.98 L, Hgb 9.8 L, Hct 32.4 L, MCV 81.4, MCH 24.6 L, MCHC 30.2 L, RDW 18.4 H, Plt Count 200, MPV 9.4, Neut % (Auto) 93.8 H, Lymph % (Auto) 3.3 L, [place] % (Auto) 2.5, Eos % (Auto) 0.1, Baso % (Auto) 0.2, Neut # (Auto) 30.6 H, Lymph # (Auto) 1.1, [place] # (Auto) 0.8, Eos # (Auto) 0.0, Baso # (Auto) 0.1, Total Counted 100, Neutrophils % (Manual) 93 H, Lymphocytes % (Manual) 6 L, Monocytes % (Manual) 1 L, Platelet Estimate Normal, Poikilocytosis 1+, Anisocytosis 1+, Ovalocytes 1+, [place] Cells 1+ 06/26/22 07:55: Sodium 135 L, Potassium 4.1, Chloride 106, Carbon Dioxide 14 L, Anion Gap 19.1 H, BUN 57 H, Creatinine 2.40 H, Estimated Creat Clear 23, Estimated GFR 20 L, Est GFR ( Amer) 24 L, Glucose 105 H, Calcium 7.3 L, Phosphorus 4.5, Magnesium 1.6, Total Bilirubin 0.6, AST 100 H D, ALT 136 H, Alkaline Phosphatase 176 H, Total Protein 5.3 L, Albumin 2.2 L, Globulin 3.1, Albumin/Globulin Ratio 0.7 L 06/26/22 10:48: POC Glucose 111 H 06/26/22 17:17: POC Glucose 139 H 06/26/22 17:45: Sodium 135 L, Potassium 4.3, Chloride 107, Carbon Dioxide 13 L, Anion Gap 19.3 H, BUN 61 H, Creatinine 2.60 H, Estimated Creat Clear 21, Estimated GFR
--- NOTE | 2022-06-27 09:38 | EXP.PULM.PN ---
Subjective *Date: 06/27/22 *Time: 10:20 Interval history: Patient more lethargic this morning. Increasing oxygen requirements. No significant improvement in renal function. Continue to receive vasopressors. Pulmonology Exam Inpatient Vital signs and Labs for Last 24 Hours: Temp Pulse Resp BP Pulse Ox 98.6 F 130 H 19 113/52 L 100 06/27/22 07:27 06/27/22 08:00 06/27/22 07:27 06/27/22 07:27 06/27/22 07:27 Laboratory Results - last 24 hr 06/26/22 10:48: POC Glucose 111 H 06/26/22 17:17: POC Glucose 139 H 06/26/22 17:45: Sodium 135 L, Potassium 4.3, Chloride 107, Carbon Dioxide 13 L, Anion Gap 19.3 H, BUN 61 H, Creatinine 2.60 H, Estimated Creat Clear 21, Estimated GFR 18 L*, Est GFR ( Amer) 22 L, Glucose 136 H D, Calcium 7.4 L 06/26/22 20:27: POC Glucose 136 H 06/27/22 05:30: WBC 21.7 H* D, RBC 4.14 L, Hgb 10.0 L, Hct 33.5 L, MCV 81.1, MCH 24.2 L, MCHC 29.9 L, RDW 18.6 H, Plt Count 125 L D, MPV 10.0, Neut % (Auto) 93.9 H, Lymph % (Auto) 1.9 L, [place] % (Auto) 3.9, Eos % (Auto) 0.1, Baso % (Auto) 0.2, Neut # (Auto) 20.3 H, Lymph # (Auto) 0.4 L, [place] # (Auto) 0.8, Eos # (Auto) 0.0, Baso # (Auto) 0.0, Total Counted 100, Neutrophils % (Manual) 86 H, Band Neutrophils % 5.0, Lymphocytes % (Manual) 2 L, Monocytes % (Manual) 5, Myelocytes % 2 H, Toxic Granulation 1+, Toxic Vacuolation 1+, Platelet Estimate Slight decrease, Hypochromasia 1+, Poikilocytosis 1+, Anisocytosis 1+, Ovalocytes 1+ 06/27/22 05:30: Sodium 135 L, Potassium 3.8, Chloride 106, Carbon Dioxide 15 L, Anion Gap 17.8 H, BUN 66 H, Creatinine 2.60 H, Estimated Creat Clear 21, Estimated GFR 18 L*, Est GFR ( Amer) 22 L, Glucose 113 H, Calcium 7.5 L, Phosphorus 4.5, Total Bilirubin 0.7, AST 38 H D, ALT 84 H D, Alkaline Phosphatase 303 H, Total Protein 5.0 L, Albumin 2.1 L, Globulin 2.9, Albumin/Globulin Ratio 0.7 L 06/27/22 05:45: POC Glucose 130 H I & O for Labs for Last 24 Hours: Intake & Output 06/24/22 06/25/22 06/26/22 06/27/22 23:59 23:59 23:59 23:59 Intake Total 810 / 1883 2403.841 / 2403.841 1663.687 / 1873.687 210 / 210 Output Total 550 / 550 780 / 780 290 / 350 560 / 560 Balance 260 / 1333 1623.841 / 9684.115 5781.687 / 1523.687 -350 / -350 Weight 148 lb 2.41 oz 160 lb 6.428 oz 160 lb 162 lb 6 oz Microbiology Reports for the Last 24 Hours: Microbiology 06/22/22 06:39 Urine,Catheterized Urine Culture - Final Proteus mirabilis Escherichia coli Constitutional: Present severe distress Head: Present normocephalic and atraumatic ENT: Present normal exam, normal oropharynx and mucous membranes moist Neck: Present normal inspection and full ROM Respiratory: Present respiratory distress and rhonchi; Absent prolonged expiratory phase, wheezes or normal respiratory effort Cardiac: Present S1/S2, Tachycardia and radial pulses present GI: Present soft and distention; Absent tenderness or guarding Rectal (female): Present deferred (female): Present deferred Skin: Present intact; Absent cyanosis or jaundice Neuro: Absent alert, awake or oriented x 3 Extremities: Present normal inspection and edema; Absent clubbing or cyanosis Psychiatric: Present cooperative and unable to assess Assessment and Plan *Assessment and plan (1) Severe sepsis with acute organ dysfunction: Status: Acute Category: Medical Code(s): A41.9 - Sepsis, unspecified organism; R65.20 - Severe sepsis without septic shock (2) Septic shock: Status: Acute Category: Medical Code(s): A41.9 - Sepsis, unspecified organism; R65.21 - Severe sepsis with septic shock Plan Ms. Chaney is a 77-year-old female prior smoker greater than [id number] smoker history, last smoked in 2009, multiple bilateral strokes with residual weakness in both left and right upper and lower extremities left greater than right was presented to the hospital worsening mentation and eventually found to be in septic shock needin
--- NOTE | 2022-06-27 11:07 | SW/DCPLANNER ---
This patient currently resides at [facility] level of care. I will continue to follow up with Glendy at [facility] [place] 2[place] until patient is medically stable for discharge. Discharge date is unknown at this time.
[2022-06-27 11:32] LABS: POC Glucose,Bedside 135 (70-110)
--- NOTE | 2022-06-27 14:13 | DIET.NUTRFU ---
Patient was NPO for ultrasound this morning and was continued due to patient not being alert enough for oral intake. According to provider and nursing she has been more lethargic today. She is on strict aspiration precautions, was on pureed with honey thick liquids with little po intake. She requires 1:1 assistance with meals. Provider and patient's have reviewed plan of care, he wants her to be comfortable. Baclofen had to be discontinued d/t her poor renal function, which was contributing to her comfort.
--- NOTE | 2022-06-27 17:49 | PC.NURSE ---
Pt has been lethargic throughout the shift, occasionally yelling out. HR was 140's-150's at the beginning of the shift until around 0915 and has since been between 80-110. She was placed on 1.5L NC due O2 sats dropping while asleep. Levophed was turned off at approx 0950 this am and she has tolerated well. BP was soft for a short period this afternoon after administering IV dilauded for pain but has since returned to baseline. Pt has not yelled out since receiving IV dilauded. All po med were held due to patient not being alert enough to swallow. Her reid is to bedside draining straw colored urine, 200mls out this shift. Glucose was 135 and 154 at checks. +3 edema to BLE and RLE, +2 to LLE. Family is at bedside and updated on POC. Bed is locked and in the lowest position, call light is within reach.
[2022-06-27 18:31] LABS: Anion Gap 15.7 mEq/L (5-15); Blood Urea Nitrogen 70 mg/dl (7-17); Calcium 7.5 mg/dl (8.4-10.2); Carbon Dioxide 19 mmol/L (22.0-30.0); Chloride 105 mmol/L (98-107); Creatinine Clearance Estimated 20 mL/min (50-200); Estimated Glomerular Filt Rate 16 ml/min (>60); GFR (African American) 20 ML/MIN (>60); Glucose 144 mg/dl (74-100); Potassium 4.7 mmoL/L (3.5-5.1); Sodium 135 mmol/L (136-145)
[2022-06-27 21:20] LABS: POC Glucose,Bedside 146 (70-110)
[2022-06-27 21:20] LABS: POC Glucose,Bedside 161 (70-110)
[2022-06-28] VITALS (16 sets, daily range): BP systolic 95–130; BP diastolic 45–55; PULSE 98–139; RESP 14–19; TEMP 36.4–36.6; O2SAT 90–100; BMI 28.0
[2022-06-28 06:42] LABS: Basophils # 0.1 K/mm3 (0-0.2); Basophils % 0.3 % (0.1-2.0); Eosinophils % 0.1 % (0.1-12.0); Hematocrit 33.5 % (37.0-47.0); Lymphocytes # 1.4 K/mm3 (0.7-4.5); Lymphocytes % 6.4 % (10-50); Mean Corpuscular HGB Conc 29.9 g/dL (31.8-35.4); Mean Corpuscular Hemoglobin 24.4 pg (27.0-31.2); Mean Corpuscular Volume 81.7 fl (81-99); Mean Platelet Volume 10.8 fl (7.4-10.4); Monocytes # 1.2 K/mm3 (0.1-1.0); Monocytes % 5.5 % (1.7-9.3); Neutrophils # 18.6 K/mm3 (1.8-7.8); Neutrophils % 87.7 % (37.0-80.0); Platelet Count 159 K/mm3 (142-424); Red Cell Distribution Width 18.7 % (11.5-17.5); White Blood Count 21.2 K/mm3 (4.8-10.8)
[2022-06-28 06:47] LABS: Chloride 107 mmol/L (98-107); MANUAL DIFFERENTIAL MANUAL DIFFERENTIAL (MANUAL DIFF)
[2022-06-28 06:48] LABS: Potassium 4.6 mmoL/L (3.5-5.1); Sodium 135 mmol/L (136-145)
[2022-06-28 06:50] LABS: Alanine Aminotransferase 62 U/L (12-78); Alkaline Phosphatase 163 U/L (38-126); Anion Gap 13.6 mEq/L (5-15); Aspartate Amino Transferase 25 U/L (14-36); Bilirubin,Total 0.5 mg/dl (0.2-1.3); Blood Urea Nitrogen 75 mg/dl (7-17); Carbon Dioxide 19 mmol/L (22.0-30.0); Creatinine Clearance Estimated 18 mL/min (50-200); Estimated Glomerular Filt Rate 15 ml/min (>60); GFR (African American) 18 ML/MIN (>60)
[2022-06-28 06:51] LABS: Albumin Level 2.4 g/dl (3.5-5.0); Albumin/Globulin Ratio 0.8 (1.1-1.8); Calcium 7.9 mg/dl (8.4-10.2); Glucose 155 mg/dl (74-100); Phosphorous 6.5 mg/dl (2.5-4.5); Total Protein,Serum 5.4 g/dl (6.3-8.2)
[2022-06-28 06:59] LABS: POC Glucose,Bedside 189 (70-110)
[2022-06-28 07:11] LABS: Anisocytosis 1+; Burr Cells 1+; Lymphocytes % 5 % (10-50); Monocytes % 7 % (2-9); Neutrophils % 88 % (42-76); Ovalocytes 1+; Platelet Estimate Slight Decrease; Total Cells Counted 100
[2022-06-28 07:12] LABS: Hypochromasia 1+
--- NOTE | 2022-06-28 08:06 | EXP.ACUTE.PN ---
Subjective *Date: 06/28/22 *Time: 17:03 Interval history: Patient continues to show concern for decline. Still having significant pain, responds to Dilaudid but causes her to be quite somnolent. Medical Exam Vital signs and Labs for Last 24 Hours: Vital Signs Temp Pulse Pulse Resp BP Pulse Ox 06/28/22 07:43 97.9 F 06/28/22 06:00 127 H 18 103/47 L 95 06/28/22 04:00 100 H 06/28/22 04:00 97.9 F 06/28/22 04:00 126 H 16 110/50 L 96 06/28/22 02:00 98 H 16 105/47 L 94 L 06/28/22 01:00 100 06/27/22 20:30 98 06/28/22 00:00 130 H 06/28/22 00:00 97.7 F 06/27/22 23:25 99 06/27/22 22:00 126 H 14 90/49 L 98 06/27/22 20:00 120 H 06/27/22 20:00 96.4 F L 06/27/22 20:00 127 H 14 92/51 L 97 06/27/22 18:00 92 H 14 112/52 L 95 06/27/22 16:00 90 06/27/22 16:00 94 H 14 105/54 L 90 L 06/27/22 15:11 97.5 F L 06/27/22 14:00 91 H 14 112/52 L 93 L 06/27/22 12:00 110 H 06/27/22 12:00 97 H 18 127/56 L 97 06/27/22 11:15 97.4 F L 06/27/22 10:00 98.7 F 106 H 16 124/54 L 83 L Intake and Output 06/27/22 06/28/22 06/28/22 23:59 07:59 15:59 Intake Total 0 / 0 Output Total 200 / 960 140 / 140 Balance -200 / -750 -140 / -140 Intake: Intake, Oral Amount 0 / 0 Output: Output, Urine Amount 200 / 700 40 / 40 Output, Urine Amount (Catheter) 100 / 100 Erazo 100 / 100 Other: Number of Unmeasured Voids 0 0 Weight 74.531 kg Patient Weight 06/28/22 23:59 Weight 74.531 kg Laboratory Results - last 24 hr 06/27/22 11:18: POC Glucose 135 H 06/27/22 16:12: POC Glucose 161 H 06/27/22 18:00: Sodium 135 L, Potassium 4.7 D, Chloride 105, Carbon Dioxide 19 L, Anion Gap 15.7 H, BUN 70 H, Creatinine 2.80 H, Estimated Creat Clear 20, Estimated GFR 16 L*, Est GFR ( Amer) 20 L, Glucose 144 H D, Calcium 7.5 L 06/27/22 20:41: POC Glucose 146 H 06/28/22 05:50: POC Glucose 189 H 06/28/22 05:55: WBC 21.2 H*, RBC 4.10 L, Hgb 10.0 L, Hct 33.5 L, MCV 81.7, MCH 24.4 L, MCHC 29.9 L, RDW 18.7 H, Plt Count 159 D, MPV 10.8 H, Neut % (Auto) 87.7 H, Lymph % (Auto) 6.4 L, [place] % (Auto) 5.5, Eos % (Auto) 0.1, Baso % (Auto) 0.3, Neut # (Auto) 18.6 H, Lymph # (Auto) 1.4, [place] # (Auto) 1.2 H, Eos # (Auto) 0.0, Baso # (Auto) 0.1, Total Counted 100, Neutrophils % (Manual) 88 H, Lymphocytes % (Manual) 5 L, Monocytes % (Manual) 7, Platelet Estimate Slight decrease, Hypochromasia 1+, Anisocytosis 1+, Ovalocytes 1+, [place] Cells 1+ 06/28/22 05:55: Sodium 135 L, Potassium 4.6, Chloride 107, Carbon Dioxide 19 L, Anion Gap 13.6, BUN 75 H, Creatinine 3.10 H, Estimated Creat Clear 18, Estimated GFR 15 L*, Est GFR ( Amer) 18 L*, Glucose 155 H, Calcium 7.9 L, Phosphorus 6.5 H D, Total Bilirubin 0.5, AST 25 D, ALT 62 D, Alkaline Phosphatase 163 H, Total Protein 5.4 L, Albumin 2.4 L D, Globulin 3.0, Albumin/Globulin Ratio 0.8 L I & O for Labs for Last 24 Hours: Intake & Output 06/25/22 06/26/22 06/27/22 06/28/22 23:59 23:59 23:59 23:59 Intake Total 2403.841 / 2403.841 1663.687 / 1873.687 210 / 210 0 / 0 Output Total 780 / 780 290 / 350 960 / 960 140 / 140 Balance 1623.841 / 1299.100 2365.687 / 1523.687 -750 / -750 -140 / -140 Weight 72.757 kg 72.575 kg 73.652 kg 74.531 kg Microbiology Reports for the Last 24 Hours: Microbiology 06/23/22 00:22 Blood Blood Culture - Final NO GROWTH AFTER 5 DAYS 06/22/22 06:39 Urine,Catheterized Urine Culture - Final Proteus mirabilis Escherichia coli Constitutional: Present mild distress, chronically ill appearing and cooperative Head: Present atraumatic and normocephalic ENT: Present normal exam and mucous membranes dry Neck: Present normal inspection Comment:: Right IJ in place Respiratory: Present normal respiratory effort; Absent accessory muscle use
--- NOTE | 2022-06-28 09:31 | EXP.PULM.PN ---
Subjective *Date: 06/28/22 *Time: 09:31 Interval history: No acute respiratory vents overnight. Patient continued to appear lethargic. Pulmonology Exam Inpatient Vital signs and Labs for Last 24 Hours: Temp Pulse Resp BP Pulse Ox 97.9 F 126 H 16 102/55 L 96 06/28/22 07:43 06/28/22 08:00 06/28/22 08:00 06/28/22 08:00 06/28/22 08:00 Laboratory Results - last 24 hr 06/27/22 11:18: POC Glucose 135 H 06/27/22 16:12: POC Glucose 161 H 06/27/22 18:00: Sodium 135 L, Potassium 4.7 D, Chloride 105, Carbon Dioxide 19 L, Anion Gap 15.7 H, BUN 70 H, Creatinine 2.80 H, Estimated Creat Clear 20, Estimated GFR 16 L*, Est GFR ( Amer) 20 L, Glucose 144 H D, Calcium 7.5 L 06/27/22 20:41: POC Glucose 146 H 06/28/22 05:50: POC Glucose 189 H 06/28/22 05:55: WBC 21.2 H*, RBC 4.10 L, Hgb 10.0 L, Hct 33.5 L, MCV 81.7, MCH 24.4 L, MCHC 29.9 L, RDW 18.7 H, Plt Count 159 D, MPV 10.8 H, Neut % (Auto) 87.7 H, Lymph % (Auto) 6.4 L, [place] % (Auto) 5.5, Eos % (Auto) 0.1, Baso % (Auto) 0.3, Neut # (Auto) 18.6 H, Lymph # (Auto) 1.4, [place] # (Auto) 1.2 H, Eos # (Auto) 0.0, Baso # (Auto) 0.1, Total Counted 100, Neutrophils % (Manual) 88 H, Lymphocytes % (Manual) 5 L, Monocytes % (Manual) 7, Platelet Estimate Slight decrease, Hypochromasia 1+, Anisocytosis 1+, Ovalocytes 1+, [place] Cells 1+ 06/28/22 05:55: Sodium 135 L, Potassium 4.6, Chloride 107, Carbon Dioxide 19 L, Anion Gap 13.6, BUN 75 H, Creatinine 3.10 H, Estimated Creat Clear 18, Estimated GFR 15 L*, Est GFR ( Amer) 18 L*, Glucose 155 H, Calcium 7.9 L, Phosphorus 6.5 H D, Total Bilirubin 0.5, AST 25 D, ALT 62 D, Alkaline Phosphatase 163 H, Total Protein 5.4 L, Albumin 2.4 L D, Globulin 3.0, Albumin/Globulin Ratio 0.8 L I & O for Labs for Last 24 Hours: Intake & Output 06/25/22 06/26/22 06/27/22 06/28/22 23:59 23:59 23:59 23:59 Intake Total 2403.841 / 2403.841 1663.687 / 1873.687 210 / 210 0 / 0 Output Total 780 / 780 290 / 350 960 / 960 140 / 140 Balance 1623.841 / 6319.732 0324.687 / 1523.687 -750 / -750 -140 / -140 Weight 160 lb 6.428 oz 160 lb 162 lb 6 oz 164 lb 5 oz Microbiology Reports for the Last 24 Hours: Microbiology 06/23/22 00:22 Blood Blood Culture - Final NO GROWTH AFTER 5 DAYS 06/22/22 06:39 Urine,Catheterized Urine Culture - Final Proteus mirabilis Escherichia coli Constitutional: Present severe distress Head: Present normocephalic and atraumatic ENT: Present normal exam, normal oropharynx and mucous membranes moist Neck: Present normal inspection and full ROM Respiratory: Present respiratory distress and rhonchi; Absent prolonged expiratory phase, wheezes or normal respiratory effort Cardiac: Present S1/S2, Tachycardia and radial pulses present GI: Present soft and distention; Absent tenderness or guarding Rectal (female): Present deferred (female): Present deferred Skin: Present intact; Absent cyanosis or jaundice Neuro: Absent alert, awake or oriented x 3 Extremities: Present normal inspection and edema; Absent clubbing or cyanosis Psychiatric: Present cooperative and unable to assess Assessment and Plan *Assessment and plan (1) Severe sepsis with acute organ dysfunction: Status: Acute Category: Medical Code(s): A41.9 - Sepsis, unspecified organism; R65.20 - Severe sepsis without septic shock (2) Septic shock: Status: Acute Category: Medical Code(s): A41.9 - Sepsis, unspecified organism; R65.21 - Severe sepsis with septic shock Plan Ms. 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
--- NOTE | 2022-06-28 09:55 | PC.NURSE ---
BLADDER SCAN ESTIMATED 21MLS OF URINE IN BLADDER
--- NOTE | 2022-06-28 16:41 | P.EN_ITS ---
Advance care planning note: Active diagnosis: Sepsis, BETTY, Hx of CVA x 3 with residual deficits, chronic pain and contracture, Full assistance for daily ADLs. The patient's active diagnoses are of sufficient risk that focused discussion on advanced care planning is indicated in order to allow the patient to thoughtfully consider personal goals of care; and, if situations arise that pr event the ability to personally give input, to ensure appropriate representation of their personal desires through documentation or informed surrogate decision makers. Discussion: Persons present and participating in discussion: In-person: Daughter, grand- daughter, ; On phone: Son. Discussion: Extensive discussion with family at bedside today. Discussed presentation to the hospital, current course, and patient's decline over the past 3 to 4 days. Given her underlying health status, multiple strokes over the past 13 years, discussed worsening kidney function, lack of nutrition, goal to keep her comfortable given her pain from contractures after her strokes. Family would like to try tube feeds for 24 hours to see if nutrition helps in any way and to be able to administer p.o. medication via NG tube. If no improvement, plan to reconsider hospice tomorrow. Patient has previously expressed that she would not want aggressive measures in her current state. Time spent: Total time spent [id number] in education and discussion directly related to advance care plannin minutes Sreedhar Appiah MD 06/28/2022 3-3:30 PM
--- NOTE | 2022-06-28 17:04 | XR_ITS ---
PROCEDURE INFORMATION: Exam: XR Abdomen Exam date and time: 06/28/2022 6:30 PM Age: 77 years old Clinical indication: Device placement; Gi device; Nasogastric tube; Additional info: Eval ng placement TECHNIQUE: Imaging protocol: Radiologic exam of the abdomen. Views: Frontal supine view of the abdomen. 1 View. COMPARISON: US ABDOMEN LIMITED 06/27/2022 9:51 AM FINDINGS: Tubes, catheters and devices: The enteric tube follows the course of the esophagus with the tip and side port terminating at the gastric bubble. The tip of the right central line overlies the cavoatrial junction. Gastrointestinal tract: Normal. No bowel dilation. Bones/joints: Unremarkable. IMPRESSION: No acute findings.
[2022-06-28 17:06] LABS: POC Glucose,Bedside 186 (70-110)
--- NOTE | 2022-06-28 20:11 | PC.NURSE ---
CALLED ANYA LAU OVER UNCLEAR KUB REPORT. ANTHROPOLOGY AND ARCHEOLOGY INSTRUCTOR STATED THAT NG TUBE WAS OK TO USE.
[2022-06-28 20:40] LABS: POC Glucose,Bedside 148 (70-110)
[2022-06-29] VITALS: BP 128/67; PULSE 120; PULSE 130; RESP 16; TEMP 36.4; O2SAT 96
--- NOTE | 2022-06-29 01:02 | PC.NURSE ---
NOTIFIED SID JOYNER THAT PT'S HEART RATE WAS IN THE 120'S AND 130'S. ANYA STATED TO JUST WATCH PT'S HEART RATE FOR NOW.
[2022-06-29 04:00] VITALS: BP 101/53; PULSE 118; PULSE 120; RESP 16; TEMP 36.6; O2SAT 94; BMI 28.2
[2022-06-29 05:46] LABS: POC Glucose,Bedside 161 (70-110)
--- NOTE | 2022-06-29 06:38 | PC.NURSE ---
PT HAS MOANED MOST OF THE NIGHT. PRN PAIN MEDS GIVEN TO RELIEVE DISCOMFORT. TURNED Q2HRS. HOB ELEVATED TO 30 DEGREES. NG TUBE REMAINS AT 57 AT THE NARE. PT'S COUGH SOUNDS MORE WET THIS AM. ACTIVATED SLUDGE ATTENDANT NOTIFIED. VSS.
--- NOTE | 2022-06-29 06:44 | XR_ITS ---
FINAL REPORT CLINICAL HISTORY: Crackles COMPARISON: 06/26/2022 FINDINGS: A single portable view of the chest was obtained. The patient is rotated to the right on this current exam. There is a new NG tube with the tip below the diaphragm. Right deep line remains in place. The heart size and pulmonary vascularity are within normal limits. The mediastinum is within normal limits. There are worsening bibasilar opacities favored to represent atelectasis or pneumonia. There are small to moderate pleural effusions which are worse compared to the prior study. The bony thorax is intact. IMPRESSION: Worsening bibasilar opacities and pleural effusions. Reviewed, Interpreted and Dictated by Juan Daniel Bansal III, MD Transcribed by Ilsa Orantes Authenticated and . [facility]
[2022-06-29 07:45] VITALS: BP 98/49; PULSE 114; RESP 14; TEMP 36.3; O2SAT 96
--- NOTE | 2022-06-29 07:45 | PC.NURSE ---
Popped Corn Oven Attendant called for recommendations per Dr. Appiah communication this morning.
[2022-06-29 08:00] VITALS: PULSE 120; PULSE 121
[2022-06-29 08:15] LABS: Basophils # 0.1 K/mm3 (0-0.2); Basophils % 0.2 % (0.1-2.0); Chloride 107 mmol/L (98-107); Eosinophils # 0.2 K/mm3 (0.0-0.4); Eosinophils % 0.9 % (0.1-12.0); Hematocrit 30.4 % (37.0-47.0); Hemoglobin 9.3 g/dL (12.2-16.2); Lymphocytes # 1.4 K/mm3 (0.7-4.5); Lymphocytes % 6.7 % (10-50); Mean Corpuscular HGB Conc 30.8 g/dL (31.8-35.4); Mean Corpuscular Volume 81.4 fl (81-99); Mean Platelet Volume 9.5 fl (7.4-10.4); Monocytes # 0.8 K/mm3 (0.1-1.0); Monocytes % 3.7 % (1.7-9.3); Neutrophils # 19.1 K/mm3 (1.8-7.8); Neutrophils % 88.4 % (37.0-80.0); Platelet Count 170 K/mm3 (142-424); Potassium 4.6 mmoL/L (3.5-5.1); Red Blood Count 3.73 M/mm3 (4.20-5.40); Sodium 135 mmol/L (136-145); White Blood Count 21.6 K/mm3 (4.8-10.8)
[2022-06-29 08:17] LABS: Alanine Aminotransferase 45 U/L (12-78); Alkaline Phosphatase 130 U/L (38-126); Aspartate Amino Transferase 21 U/L (14-36); Bilirubin,Total 0.4 mg/dl (0.2-1.3); Creatinine Clearance Estimated 16 mL/min (50-200); Estimated Glomerular Filt Rate 12 ml/min (>60); GFR (African American) 15 ML/MIN (>60)
[2022-06-29 08:18] LABS: Albumin Level 2.4 g/dl (3.5-5.0); Albumin/Globulin Ratio 0.8 (1.1-1.8); Anion Gap 13.6 mEq/L (5-15); Calcium 7.7 mg/dl (8.4-10.2); Carbon Dioxide 19 mmol/L (22.0-30.0); Globulin 2.9 g/dL (1.3-3.2); Glucose 145 mg/dl (74-100); Total Protein,Serum 5.3 g/dl (6.3-8.2)
--- NOTE | 2022-06-29 08:18 | PC.NURSE ---
Tube feeding started at 10ml/hr with Q4hr 100ml flush, Glucerna.
[2022-06-29 08:20] LABS: Blood Urea Nitrogen 86 mg/dl (7-17)
[2022-06-29 08:21] LABS: MANUAL DIFFERENTIAL MANUAL DIFFERENTIAL (MANUAL DIFF)
--- NOTE | 2022-06-29 09:01 | DIET.NUTRFU ---
Consulted to start TF, NG tube confirmed placement to receive nutrition. Patient has been unable to take oral intake d/t being lethargic and confused. and family continues to want aggressive tx. Labs reviewed: BUN 86/Cr 3.6, worse last set was 75/3.10 on 06/28. Albumin depleted at 2.4L. Patient is noted to have +2-3 edema, urine output was poor at 215ml on 06/28. NaCl was provided last on 06/26. lasix on 06/26, Bumex was provided 06/28. Weight has been increasing d/t fluid gains at CBW of 74.92kg, reviewing wt trends, dry wt is approx 65-67kg. Using dry wt for nutritional needs 1625-1950kcal, 50-65gm protein (dependent on renal fxn), 1430-1650ml fluid/day. She is a diabetic, BS ranging between 148-189 last couple days. Start Glucerna at 10ml/hr to increase to goal rate of 75ml/hr to provide 1800ml/1800kcal/75gm protein and 1535ml formula water plus flush of 100ml [id number]=347jl/day for total fluid of 2135ml, adjust fluid as needed based on renal fxn. LBM 06/25, medications are place for BM mgt, will review with IDT. Based on poor po since admit, decline in swallowing and mental status patient does trigger for severe PCM, provider noted.
--- NOTE | 2022-06-29 09:41 | EXP.PULM.PN ---
Subjective *Date: 06/29/22 *Time: 11:34 Interval history: No acute respiratory events overnight. Occasionally needing oxygen but much preoperative lethargic. Pulmonology Exam Inpatient Vital signs and Labs for Last 24 Hours: Temp Pulse Resp BP Pulse Ox 97.3 F L 121 H 14 98/49 L 96 06/29/22 07:45 06/29/22 08:00 06/29/22 07:45 06/29/22 07:45 06/29/22 07:45 Laboratory Results - last 24 hr 06/28/22 16:56: POC Glucose 186 H 06/28/22 20:22: POC Glucose 148 H 06/29/22 05:39: POC Glucose 161 H 06/29/22 08:04: WBC 21.6 H*, RBC 3.73 L, Hgb 9.3 L, Hct 30.4 L, MCV 81.4, MCH 25.0 L, MCHC 30.8 L, RDW 19.0 H, Plt Count 170, MPV 9.5, Neut % (Auto) 88.4 H, Lymph % (Auto) 6.7 L, [place] % (Auto) 3.7, Eos % (Auto) 0.9, Baso % (Auto) 0.2, Neut # (Auto) 19.1 H, Lymph # (Auto) 1.4, [place] # (Auto) 0.8, Eos # (Auto) 0.2, Baso # (Auto) 0.1 06/29/22 08:04: Sodium 135 L, Potassium 4.6, Chloride 107, Carbon Dioxide 19 L, Anion Gap 13.6, BUN 86 H, Creatinine 3.60 H, Estimated Creat Clear 16, Estimated GFR 12 L*, Est GFR ( Amer) 15 L*, Glucose 145 H, Calcium 7.7 L, Total Bilirubin 0.4, AST 21, ALT 45 D, Alkaline Phosphatase 130 H, Total Protein 5.3 L, Albumin 2.4 L, Globulin 2.9, Albumin/Globulin Ratio 0.8 L I & O for Labs for Last 24 Hours: Intake & Output 06/26/22 06/27/22 06/28/22 06/29/22 23:59 23:59 23:59 23:59 Intake Total 1663.687 / 1873.687 210 / 210 0 / 0 50 / 50 Output Total 290 / 350 960 / 960 215 / 215 200 / 200 Balance 1373.687 / 1523.687 -750 / -750 -215 / -215 -150 / -150 Weight 160 lb 162 lb 6 oz 164 lb 5 oz 165 lb 3 oz Microbiology Reports for the Last 24 Hours: Microbiology 06/22/22 06:39 Blood Blood Culture - Final Proteus mirabilis 06/23/22 00:22 Blood Blood Culture - Final NO GROWTH AFTER 5 DAYS Constitutional: Present severe distress Head: Present normocephalic and atraumatic ENT: Present normal exam, normal oropharynx and mucous membranes moist Neck: Present normal inspection and full ROM Respiratory: Present respiratory distress, rhonchi and distant breath sounds; Absent prolonged expiratory phase, wheezes or normal respiratory effort Cardiac: Present S1/S2, Tachycardia and radial pulses present GI: Present soft and distention; Absent tenderness or guarding Rectal (female): Present deferred (female): Present deferred Skin: Present intact; Absent cyanosis or jaundice Neuro: Absent alert, awake or oriented x 3 Extremities: Present normal inspection and edema; Absent clubbing or cyanosis Psychiatric: Present cooperative and unable to assess Assessment and Plan *Assessment and plan (1) Severe sepsis with acute organ dysfunction: Status: Acute Category: Medical Code(s): A41.9 - Sepsis, unspecified organism; R65.20 - Severe sepsis without septic shock (2) Septic shock: Status: Acute Category: Medical Code(s): A41.9 - Sepsis, unspecified organism; R65.21 - Severe sepsis with septic shock Plan Ms. 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 Febrile and neutrophilic leukocytosis upon admission. Urine cultures from 06/18/2022 positive for E. coli and Klebsiella, patient was discharged home on Bactrim from the ER. Patient went to [facility] and has been progressively worsening mentation eventually brought to the hospital. Interval update: Currently receiving vancomycin and cefepime. Pending blood cultures. Oliguric BETTY continue to worsen, worsening BUN/creatinine. We balbir
[2022-06-29 09:42] LABS: Lymphocytes % 10 % (10-50); Monocytes % 2 % (2-9); Neutrophils % 88 % (42-76); Total Cells Counted 100
[2022-06-29 09:43] LABS: Platelet Estimate Normal; RBC Morphology Normal
[2022-06-29 11:13] VITALS: BP 127/58; PULSE 128; RESP 22; TEMP 36.3; O2SAT 93
--- NOTE | 2022-06-29 11:25 | PC.NURSE ---
NG clamped to check residual.
--- NOTE | 2022-06-29 12:39 | PC.NURSE ---
patient oxygen dropping to 85% on 2LNC. Increased oxygen to 5LNC, oxygen saturation increased to 89%. Tube feeds held. Dr. Appiah notified.
--- NOTE | 2022-06-29 15:27 | EXP.ACUTE.PN ---
Subjective *Date: 06/29/22 *Time: 16:04 Interval history: Patient showing no improvement this morning. Appears quite somnolent. Requiring more oxygen. On 4-1/2 L this morning. Moans with pain and exam. Not following commands. Has been tolerating tube feeds at 10 cc an hour. Urine output decreasing Medical Exam Vital signs and Labs for Last 24 Hours: Vital Signs Temp Pulse Pulse Pulse Resp BP Pulse Ox 06/29/22 11:13 97.4 F L 128 H 22 127/58 L 93 L 06/29/22 08:00 120 H 06/29/22 08:00 121 H 06/29/22 07:45 97.3 F L 114 H 14 98/49 L 96 06/29/22 04:00 120 H 06/29/22 04:00 97.8 F 118 H 16 101/53 L 94 L 06/29/22 00:00 97.5 F L 120 H 16 128/67 96 06/29/22 00:00 130 H 06/28/22 20:00 130 H 06/28/22 20:00 97.6 F 139 H 16 104/55 L 94 L 06/28/22 18:00 129 H 14 130/54 L 98 06/28/22 16:00 124 H 06/28/22 16:00 122 H 106/45 L 90 L Intake and Output 06/28/22 06/29/22 06/29/22 23:59 07:59 15:59 Intake Total 0 / 100 100 / 100 Output Total 0 / 215 200 / 200 0 / 200 Balance 0 / -215 -200 / -100 100 / -100 Intake: Intake, Oral Amount 0 / 0 0 / 0 Infusion Intake 100 / 100 Cefepime HCl 1 gm In 0.9 % 100 / 100 Sodium Chloride 50 ml @ 100 mls /hr IV Q12H [facility] Rx#:[id number] Output: Output, Urine Amount 0 / 40 200 / 200 0 / 200 Other: Number of Unmeasured Voids 0 0 0 Weight 74.928 kg Patient Weight 06/29/22 23:59 Weight 74.928 kg Laboratory Results - last 24 hr 06/28/22 16:56: POC Glucose 186 H 06/28/22 20:22: POC Glucose 148 H 06/29/22 05:39: POC Glucose 161 H 06/29/22 08:04: WBC 21.6 H*, RBC 3.73 L, Hgb 9.3 L, Hct 30.4 L, MCV 81.4, MCH 25.0 L, MCHC 30.8 L, RDW 19.0 H, Plt Count 170, MPV 9.5, Neut % (Auto) 88.4 H, Lymph % (Auto) 6.7 L, [place] % (Auto) 3.7, Eos % (Auto) 0.9, Baso % (Auto) 0.2, Neut # (Auto) 19.1 H, Lymph # (Auto) 1.4, [place] # (Auto) 0.8, Eos # (Auto) 0.2, Baso # (Auto) 0.1, Total Counted 100, Neutrophils % (Manual) 88 H, Lymphocytes % (Manual) 10, Monocytes % (Manual) 2, Platelet Estimate Normal, RBC Morphology Normal 06/29/22 08:04: Sodium 135 L, Potassium 4.6, Chloride 107, Carbon Dioxide 19 L, Anion Gap 13.6, BUN 86 H, Creatinine 3.60 H, Estimated Creat Clear 16, Estimated GFR 12 L*, Est GFR ( Amer) 15 L*, Glucose 145 H, Calcium 7.7 L, Total Bilirubin 0.4, AST 21, ALT 45 D, Alkaline Phosphatase 130 H, Total Protein 5.3 L, Albumin 2.4 L, Globulin 2.9, Albumin/Globulin Ratio 0.8 L I & O for Labs for Last 24 Hours: Intake & Output 06/26/22 06/27/22 06/28/22 06/29/22 23:59 23:59 23:59 23:59 Intake Total 1663.687 / 1873.687 210 / 210 0 / 0 100 / 100 Output Total 290 / 350 960 / 960 215 / 215 200 / 200 Balance 1373.687 / 1523.687 -750 / -750 -215 / -215 -100 / -100 Weight 72.575 kg 73.652 kg 74.531 kg 74.928 kg Microbiology Reports for the Last 24 Hours: Microbiology 06/22/22 06:39 Blood Blood Culture - Final Proteus mirabilis 06/23/22 00:22 Blood Blood Culture - Final NO GROWTH AFTER 5 DAYS Constitutional: Present mild distress, chronically ill appearing and somnolent Head: Present atraumatic and normocephalic ENT: Present normal exam and mucous membranes dry Neck: Present normal inspection Comment:: Right IJ in place Respiratory: Present normal respiratory effort; Absent accessory muscle use, rhonchi, wheezes or crackles Comment:: Transmitted upper airway sounds Cardiac: Present Regular Rhythm and Tachycardia GI: Present soft and normal bowel sounds; Absent distention or tenderness Extremities: Present normal inspection, full ROM and edema (2+ in upper extremities, 2+ bilateral lower extremity) Comment:: [place]asarca Skin: Present intact; Absent erythema Neuro: Present alert Comment:: Able to move right leg, left hand in brace to reduce risk of contracture, left leg immobile, chronic deficits se
--- NOTE | 2022-06-29 15:35 | PC.NURSE ---
Courtesy tray left in patient room for family. Patient transitioned to comfort/hospice.
--- NOTE | 2022-06-29 17:13 | P.DN_ITS ---
Pronouncement Note Date and Time of Date of : 06/29/22 Time of : 17:03 PCOD Preliminary cause of : Sepsis due to gram-negative bacteria Contributing Factors (1) Severe sepsis with acute organ dysfunction: (2) Acute kidney injury superimposed on CKD: (3) Acute UTI (urinary tract infection): (4) Acute delirium: (5) Altered mental status: (6) Severe protein-calorie malnutrition: Summary Additional details: 77-year-old female with history of multiple CVAs, resides at [facility].? Presented with septic shock secondary to UTI and bacteremia.? Urine and blood positive for Proteus mirabilis.? Initially treated with broad- spectrum antibiotics, de-escalated to cefepime based on sensitivities of Proteus. Pulmonology and cardiology were assisting with care given patient's critical care status and A-fib. Patient showed initial response to treatment but began to decline on day 4 of hospitalization. Hypotension recurred, developed worsening kidney injury and oliguria. Patient not tolerating nutrition or oral meds. Given patient's extensive history of strokes, progressive decline over the past many years, and failure to improve with goal- directed therapy, discussions had with family led to decision to pursue comfort measures. Patient passed peacefully shortly after transitioning to hospice style care. Additional Data Confirmation of : no pulse, no respirations, no heart sounds and pupils fixed and dilated Family: at bedside Attending/PCP notified?: Yes Attending physician: Sreedhar Appiah MD Was code activated?: No Autopsy requested?: No unemployment examiner notified?: Yes Organ bank notified?: Yes Advance directives: Yes
--- NOTE | 2022-06-29 17:14 | PC.NURSE ---
Pronounced per Dr. Barrow. Patient .
--- NOTE | 2022-06-29 17:21 | EXP.DEATH.DS ---
Discharge Sum: Prov Provider Primary care physician: Jacinto Greenfield Visit Care Team Role Provider Type Jacinto Greenfield Primary Care Provider Referring Mack Alexander MD Other Providers Staff Physician Jaguar Gayle MD Other Providers Staff Physician Cassi Le MD Other Providers Consulting Physician Tato Avila MD Other Providers Staff Physician PONCHO Simon Other Providers Physician Lead Miner Bernadine Blackburn MD Other Providers Consulting Physician Demetrius Granados MD Other Providers Consulting Physician Reinaldo Madrid MD Other Providers Staff Physician Poppy Chakraborty, [employer] Other Providers Nurse Practitioner Brittany Childers APRN Other Providers Nurse Practitioner Jacinto Hui (ED), Emergency Provider ER Physician Vani Avila MD Admit Provider Physician Attending Provider Admitting clinician: Vani Avila Attending physician on admission: Vani Avila Consults: 06/22/22 10:22 Cardiology Consult [Consult to Cardiology] [CONS] Routine Consulting Provider: Cardiology Reason For Consult: Afib 06/22/22 13:02 Consult to Pulmonology [CONS] Routine Consulting Provider: Jaguar Gayle Reason For Consult: septic shock 06/28/22 17:04 Nutrition Consult [CONS] Routine Comment: Reason for Nutrition Consult: Tube Feeding, Initiate Pronouncing clinician: Sreedhar Appiah Discharge Sum: Diag PCOD Cause of : Sepsis due to Gram-negative organism with septic shock Contributing Factors (1) Severe sepsis with acute organ dysfunction: (2) Acute kidney injury superimposed on CKD: (3) Acute UTI (urinary tract infection): (4) Acute delirium: (5) Altered mental status: (6) Severe protein-calorie malnutrition: Discharge Sum: Summary Date and Time Date of admission: 06/22/22 07:57 Date of : 06/29/22 Time of : 17:03 Hospital Course prior to Hospital Course Information: 77-year-old female with history of CVA, resides at [facility].? Presented with septic shock secondary to UTI and bacteremia.? Urine and blood positive for Proteus mirabilis.? Previous sensitivities the week before admission showing E. coli and Proteus.? Sensitive to cefepime.? Patient initially required norepinephrine, gradually weaned off of vasopressors. Had progressive decline during admission however. Patient's case did not show further improvement, family elected to proceed with hospice style care after multiple goals of care discussions and failure to improve/respond positively to aggressive treatment. Patient within 2 hours of transitioning to comfort care. Problems during hospitalization as follows Septic shock Proteus mirabilis bacteremia Pyelonephritis -Work-up initiated on admission with broad culture collection including blood and urine. Broad-spectrum antibiotics including cefepime, vancomycin, metronidazole. Received IV fluids and was started on vasopressors. Antibiotics were de-escalated when cultures returned positive for E. coli and Proteus in her urine and Proteus in her blood, all sensitive to cefepime. Continued cefepime for empiric course, receiving 3-day of . Patient was weaned off of Levophed but had to go back on intermittently due to continued hypotension. Given plateauing of improvement with white cell count improving to only 21,00
--- NOTE | 2022-06-29 17:48 | PC.NURSE ---
PATRICIO contacted #[phone] Charissa [place] patient ruled out.
--- NOTE | 2022-06-29 18:40 | PC.NURSE ---
Called [facility] to fruit picker body, called [phone]. No answer.
--- NOTE | 2022-06-29 18:48 | PC.NURSE ---
Notified [facility] for body pickup
--- NOTE | 2022-06-29 19:59 | PC.NURSE ---
Pt tranferred off the floor with home @ this time
== END 2022-06-29 19:59 | disposition expired | DRG 871 ==
LOC: ER 07:22 → 2ND 08:03
PROVIDERS: Internal Medicine Adolescent Medicine; Nurse Practitioner Family; Admitting Provider Student in an Organized Health Care Education/Training Program; Emergency Provider Emergency Medicine; PCP Family Medicine; Visit Provider Student in an Organized Health Care Education/Training Program
DX: A41.50 Gram-negative sepsis, unspecified (principal); E43 Unspecified severe protein-calorie malnutrition; I21.4 Non-ST elevation (NSTEMI) myocardial infarction; R65.21 Severe sepsis with septic shock; N39.0 Urinary tract infection, site not specified; G93.40 Encephalopathy, unspecified; N17.9 Acute kidney failure, unspecified; R65.20 Severe sepsis without septic shock; I48.91 Unspecified atrial fibrillation; E78.5 Hyperlipidemia, unspecified; Z86.73 Personal history of transient ischemic attack (TIA), and cerebral infarction without residual deficits; N18.9 Chronic kidney disease, unspecified; Z79.4 Long term (current) use of insulin; E11.9 Type 2 diabetes mellitus without complications; D63.1 Anemia in chronic kidney disease; Z68.28 Body mass index [BMI] 28.0-28.9, adult
CPT/HCPCS: 36556; 36415; 51702; 70371; 71045; 74018; 76705; 76770; 80048; 80053; 80202; 81001; 82009; 82962; 83605; 83735; 83880; 84100; 84145; 84436; 84443; 84484; 85007; 85025; 85651; 86140; 87040; 87077; 87086; 87088; 87186; 92610; 92611; 93005; 93306; 94761; 99285; C9803; J0282; J0692; J0696; J3370; J7060; U0003; U0005